=== PATIENT | male | born 1955 | race Caucasian/White ===

== ENCOUNTER → 2019-11-19 13:17 | Outpatient (BNVA) | payer BC, SELFPAY | PROVIDERS: Family Provider Family Medicine; PCP Family Medicine; Referring Provider Family Medicine; Visit Provider Podiatrist Foot & Ankle Surgery | DX: M79.671 Pain in right foot (principal); M79.672 Pain in left foot; M20.12 Hallux valgus (acquired), left foot; M20.11 Hallux valgus (acquired), right foot; M20.42 Other hammer toe(s) (acquired), left foot; M20.41 Other hammer toe(s) (acquired), right foot; M21.42 Flat foot [pes planus] (acquired), left foot; M21.41 Flat foot [pes planus] (acquired), right foot | CPT/HCPCS: 73630 ==

== ENCOUNTER 2019-12-28 10:01 | Inpatient (IN) | payer BC, SELFPAY ==
[2019-12-28] VITALS (30 sets, daily range): BP systolic 54–133; BP diastolic 28–89; PULSE 48–143; RESP 12–38; TEMP 36.6–36.9; O2SAT 91–99; BMI 31.9
--- NOTE | 2019-12-28 10:31 | ED_ITS ---
HPI - Abdominal Pain General: Chief Complaint: Abdominal Pain Stated Complaint: RIGHT SIDE PAIN Time Seen by Provider: 12/28/19 10:31 Source: patient Mode of arrival: ambulatory Limitations: no limitations History of Present Illness: HPI narrative: Patient comes in today with complaints of right lower quadrant pain. Patient appears well. Patient appears in mild to moderate pain. Patient has his gallbladder and appendix still. Patient reports a possible history of kidney stone with symptoms but did not get treatment at that time. Patient reports the pain started last evening, patient denied any vomiting or diarrhea with it or any fever. Review of Systems General: Reports: 10 or more systems reviewed and unremarkable except in HPI and below GI: Reports: abdominal pain (Right lower quadrant) PFS ED PFSH: Family History Other Cancer Chronic kidney disease (CKD) Denies family history of Diabetes CAD (coronary artery disease) Clotting disorder Dementia Hyperlipidemia Psychiatric illness Suicide Anesthesia complication Bleeding disorder Family history of premature coronary artery disease Lung disease Hypertension Stroke Social History (Updated 11/19/19 @ 13:50 by Marguerite Miller LPN) Smoking and tobacco status: never smoked Alcohol intake: never Lives independently: No Household members: spouse Marital status: Current occupational status: employed 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 Exam Const: COMMON NORMALS: no acute distress and patient oriented x3 GENERAL APPEARANCE: cooperative HENMT: COMMON NORMALS: normocephalic and Normal external nose present HEAD & SCALP: normal to inspection and normocephalic NOSE: Normal external nose present MOUTH: Normal oral and palatal mucosa present Eye: GENERAL EYE: appearance normal, both eyes and all related structures Neck/C-Spine: COMMON NORMALS: full ROM Lymph: LYMPHATIC: no lymphadenopathy noted Chest: COMMONS NORMALS: normal inspection of the chest Resp: COMMON NORMALS: normal respiratory effort EFFORT & INSPECTION: Yes able to speak in complete sentences Cardio: COMMON NORMALS: regular rate and regular rhythm RATE: regular rate RHYTHM: regular rhythm GI: COMMON NORMALS: Soft to palpation AUSCULTATION: Yes normoactive bowel sounds PALPATION: Yes Soft to palpation and Yes Tenderness to palpation present (GI) Details: RLQ (Light palpation) PERCUSSION: normal to percussion : COMMON NORMALS: Yes no CVA tenderness BLADDER/KIDNEY EXAM: Yes no CVA tenderness Back/Pelvis: COMMON NORMALS: no CVA tenderness and thoracic and lumbar spine normal to inspection Extremity: COMMON NORMALS: normal to inspection Neuro: COMMON NORMALS: patient oriented x3 and moves all extremities Psych: COMMON NORMALS: mental status grossly normal and cooperative Skin: COMMON NORMALS: no rashes or lesions noted GENERAL SKIN EXAM: no rashes or lesions noted Course ED course: 1107, Patient had a episode of intense pain radiating up into the mid epigastrium causing him to become diaphoretic. We will add a EKG and troponin series to plan and patient was medicated with morphine and Zofran for discomfort. wjw 1138, patient resting well reports is much improved with pain since medication. Reviewed labs with patient and recommendations for CT scan for further evaluation to rule out appendicitis. Patient reports understanding agreed to plan. wjw 1228, patient had a another vasovagal response with a decrease in his blood pressure and pulse rate. Patient was placed in Trendelenburg and nursing performed four chest compressions on patient in which patient spontaneously recovered without medication or treatment.. Dr. Lawrence and Dr. Jimenez both responded to evaluate the patient. Patient denied any chest pain. Repeat EKG was completed. wjw 1238, Dr. Menchaca had reviewed EKG and strips with Dr. Cuevas who believed that the episode was a vasovagal event. wjw 1244, talked with Dr. Ashkan MACK, he reports that patient has an acute appendicitis and also notes a left renal mass that seems suggestive for a neoplasm that will need further work-up. wjw 1300. Discussed with Dr. Billings regarding patient's acute appendicitis. Due to patient risk and concern for vasovagal syncope he requested patient be admitted and evaluated further for this syncopal episode prior to going to surgery. We will place patient on antibiotic and plan for admission with hospitalist staff and surgery for consult. wjw 1310, discussed with Dr. Dillon regarding patient and admission. She agreed to admission to the ICU for further evaluation regarding vasovagal syncope and treatment of acute appendicitis. Vital Signs: Vital signs: Vital Signs Temperature 98.4 F 12/28/19 10:32 Pulse Rate 81 12/28/19 13:00 Respiratory Rate 16 12/28/19 13:00 Blood Pressure 110/67 12/28/19 13:00 Pulse Oximetry 96 12/28/19 13:00 MDM - Abdominal Pain MDM Narrative: Medical decision making narrative: Patient came in today with right lower quadrant abdominal pain since yesterday evening. Patient had not eaten since yesterday evening. Patient appears mildly unwell. Patient does appear in moderate pain. Exam noted a significantly tender right lower quadrant of the abdomen. Vital signs were normal. Respirations were even lungs were clear to auscultation. Differential diagnosis includes renal calculi, acute appendicitis, gastroenteritis, diverticulitis, colitis. White blood cell count was elevated at 19,000, sodium was 134, creatinine is 1.3. CT scan of the abdomen and pelvis noted an acute appendicitis, incidentally there was a noted a suspicious mass to the left kidney that was concern for neoplasm. Patient did have an episode of vasovagal syncope in which he bradycardia to the point of systole for about 5 to 10 seconds. Nursing had performed for chest compressions in which patient had spontaneous recovery to a pulse in the 80s and a blood pressure with [address] Menchaca and Dr. Jimenez both had evaluated the patient along with consult to Dr. Fry who felt that the patient had a vasovagal arrhythmia/syncope. Discussed with Dr. cortez who agreed to consult with patient for the acute appendicitis but requested that hospitalist evaluate the patient further prior to surgery and to admit patient to hospitalist with possible further cardiac evaluation. Dr. Dillon was consulted and agreed to hospitalist admission of patient. Patient needs admission for surgical consult and treatment, monitoring for deterioration of condition, and further cardiac evaluation. Lab Data: Labs: Lab Results 12/28/19 12/28/19 12/28/19 Range/Units 10:38 10:38 10:38 WBC 19.8 H (4.0-10.0) 10^3/ uL RBC 4.97 (4.1-5.3) 10^6/u L Hgb 15.7 (11.7-16.6) g/dL Hct 47.0 (42.0-52.0) % MCV 94.6 H (80-94) fL MCH 31.6 (28.0-34.0) pg MCHC 33.4 (30.0-36.0) g/dL RDW 13.0 (12.1-15.1) % Plt Count 256 (130-400) 10^3/c mm MPV 9.8 (7.4-10.4) fL Neut % (Auto) 82.4 % Lymph % (Auto) 11.0 % [place] % (Auto) 5.1 % Eos % (Auto) 0.7 % Baso % (Auto) 0.5 % Neut # (Auto) 16.3 H (1.8-7.7) 10^3/u L Lymph # (Auto) 2.2 (0.8-4.8) 10^3/u L [place] # (Auto) 1.0 H (0.2-0.9) 10^3/u L Eos # (Auto) 0.1 (0.0-0.8) 10^3/u L Baso # (Auto) 0.1 (0.0-0.1) 10^3/u L Nucleated RBC % (a uto) 0 % Nucleated RBCs # 0.0 /100WBC Sodium 134 L (136-145) mmol/L Potassium 4.4 (3.5-5.1) mmol/L Chloride 99 (98-107) mmol/L Carbon Dioxide 21 L (22-29) mmol/L Anion Gap 18.4 (5-19) BUN 19 (8-23) mg/dL Creatinine 1.3 H (0.7-1.2) mg/dL GFR Calculation 55.9 L (90-130) mL/min Glucose 122 H (65-115) mg/dL Calculated Osmolal ity 276 L (285-295) mOsm/k g Calcium 9.8 (8.5-10.5) mg/dL Magnesium (1.7-2.3) mg/dL Total Bilirubin 0.7 (0.15-1.2) mg/dL AST 25 (0-40) U/L ALT 44 H (0-41) U/L Alkaline Phosphata se 109 (40-130) IU/L Troponin T Baselin e 8 (0-15) ng/L Troponin T 120 Min vishnu (0-15) ng/L Delta Troponin T (0-10) ABS# Total Protein 7.6 (6.6-8.7) g/dL Albumin 4.4 (3.5-5.2) g/dL Globulin 3.2 (1.3-4.6) g/dL Lipase 30 (13-60) U/L Urine Color (Yellow) Urine Appearance (CLEAR) Urine pH (5-7) Ur Specific Gravit y (1.005-1.030) Urine Protein (Negative) Urine Glucose (UA) (Normal) Urine Ketones (Negative) Urine Blood (Negative) Urine Nitrate (Negative) Urine Bilirubin (NEGATIVE) Urine Urobilinogen (Negative) mg/dL Ur Leukocyte Shi ase (Negative) 12/28/19 12/28/19 12/28/19 Range/Units 10:38 10:40 12:23 WBC (4.0-10.0) 10^3/ uL RBC (4.1-5.3) 10^6/u L Hgb (11.7-16.6) g/dL Hct (42.0-52.0) % MCV (80-94) fL MCH (28.0-34.0) pg MCHC (30.0-36.0) g/dL RDW (12.1-15.1) % Plt Count (130-400) 10^3/c mm MPV (7.4-10.4) fL Neut % (Auto) % Lymph % (Auto) % [place] % (Auto) % Eos % (Auto) % Baso % (Auto) % Neut # (Auto) (1.8-7.7) 10^3/u L Lymph # (Auto) (0.8-4.8) 10^3/u L [place] # (Auto) (0.2-0.9) 10^3/u L Eos # (Auto) (0.0-0.8) 10^3/u L Baso # (Auto) (0.0-0.1) 10^3/u L Nucleated RBC % (a uto) % Nucleated RBCs # /100WBC Sodium (136-145) mmol/L Potassium (3.5-5.1) mmol/L Chloride (98-107) mmol/L Carbon Dioxide (22-29) mmol/L Anion Gap (5-19) BUN (8-23) mg/dL Creatinine (0.7-1.2) mg/dL GFR Calculation (90-130) mL/min Glucose (65-115) mg/dL Calculated Osmolal ity (285-295) mOsm/k g Calcium (8.5-10.5) mg/dL Magnesium 2.0 (1.7-2.3) mg/dL Total Bilirubin (0.15-1.2) mg/dL AST (0-40) U/L ALT (0-41) U/L Alkaline Phosphata se (40-130) IU/L Troponin T Baselin e (0-15) ng/L Troponin T 120 Min vishnu 7.36 (0-15) ng/L Delta Troponin T -0.64 L (0-10) ABS# Total Protein (6.6-8.7) g/dL Albumin (3.5-5.2) g/dL Globulin (1.3-4.6) g/dL Lipase (13-60) U/L Urine Color Yellow (Yellow) Urine Appearance Clear (CLEAR) Urine pH 5 (5-7) Ur Specific Gravit y 1.015 (1.005-1.030) Urine Protein Neg (Negative) Urine Glucose (UA) Norm (Normal) Urine Ketones Negative (Negative) Urine Blood Neg (Negative) Urine Nitrate Negative (Negative) Urine Bilirubin Neg (NEGATIVE) Urine Urobilinogen Norm (Negative) mg/dL Ur Leukocyte Shi ase Negative (Negative) EKG Data ^: EKG 1: Attestation: I personally reviewed and interpreted this EKG as follows: (1118, sinus rhythm at 66 bpm and regular, no ST elevation, occasional PVC is noted.) EKG 2: Attestation: I personally reviewed and interpreted this EKG as follows: (1233, Sinus rhythm, occasion PVC's, no ST elevation, no change from previous EKG.) Critical Care Time Critical Care Time: Critical Care Time: Yes Total Critical Care Time: 30 Attestation: 1228, patient had a sudden drop in pulse and blood pressure an apparent vasovagal syncope. Nursing had performed for compressions on the patient when he had an sudden return to a sinus rhythm and a return of blood pressure from 50 systolic to 130 systolic. Patient had repeat EKG which showed no significant change from prior evaluation. And troponin had no change from prior evaluation. Dr. Menchaca and Dr. Jimenez both had evaluated patient during the episode and had consulted with Dr. Cuevas for her cardiology opinion. Discharge Plan Discharge Patient Disposition: Admitted As Inpatient Clinical Impression: Vasovagal syncope Acute appendicitis Qualifiers: Acute appendicitis type: unspecified acute appendicitis type Qualified Code(s): K35.80 - Unspecified acute appendicitis Condition: Stable Referrals: Ayo Miles DO [Primary Care Provider] - Patient Instructions: Appendicitis (GEN) Coding Level of Care Code ED Bacteriologist Food for Chg Fwd Exam Comprehensive
--- NOTE | 2019-12-28 10:38 | CTR_ITS ---
PROCEDURE INFORMATION: Exam: CT Abdomen And Pelvis With Contrast Exam date and time: 12/28/2019 10:41 AM Age: 64 years old Clinical indication: Abdominal pain; Localized; Other: Rlq and epigastric pain; Additional info: Rlq pain tenderness TECHNIQUE: Imaging protocol: Computed tomography of the abdomen and pelvis with intravenous contrast. Radiation optimization: All CT scans at this facility use at least one of these dose optimization techniques: automated exposure control; mA and/or kV adjustment per patient size (includes targeted exams where dose is matched to clinical indication); or iterative reconstruction. Contrast material: VISI 320; Contrast volume: 95 ml; Contrast route: INTRAVENOUS (IV); COMPARISON: No relevant prior studies available. RADIATION DOSE METRICS: Total DLP (mGy-cm): 1549.78 FINDINGS: Liver: No mass. Gallbladder and bile ducts: Unremarkable. No ductal dilation. Pancreas: Normal. No ductal dilation. Spleen: Normal. No splenomegaly. Adrenals: Normal. No mass. Kidneys and ureters: Heterogeneous 3.5 cm exophytic left mid renal mass. No renal calculus or hydronephrosis. Stomach and bowel: Minimal small bowel dilatation. No obstruction. Possible minimal bowel wall thickening in the distal ileum. Appendix: The appendix is distended, estimated at 2 cm. Appendiceal wall thickening, periappendiceal edema/inflammation. Appendicoliths. Intraperitoneal space: No free fluid or pneumoperitoneum. No abscess. Vasculature: No abdominal aortic aneurysm. Lymph nodes: No significant adenopathy. Bladder: Unremarkable as visualized. Reproductive: Unremarkable as visualized. Bones/joints: No acute findings. Soft tissues: Small fat containing umbilical and supraumbilical ventral hernias. CT/CT abdomen pelvis w con* [id number] IMPRESSION: Acute appendicitis. 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 THIS REPORT CONTAINS FINDINGS THAT MAY BE CRITICAL TO PATIENT CARE. The findings were verbally communicated via telephone conference with Dillon Armendariz at 12:46 PM CDT on 12/28/2019. The findings were acknowledged and understood. Radiation Dose CTDIVOL = (mGy): DLP = 1549.78 (mGy-cm)
[2019-12-28 11:05] LABS: Basophils # 0.1 10^3/uL (0.0-0.1); Basophils % 0.5 %; Eosinophils # 0.1 10^3/uL (0.0-0.8); Eosinophils % 0.7 %; Hemoglobin 15.7 g/dL (11.7-16.6); Lymphocytes # 2.2 10^3/uL (0.8-4.8); Mean Corpuscular HGB Conc 33.4 g/dL (30.0-36.0); Mean Corpuscular Hemoglobin 31.6 pg (28.0-34.0); Mean Corpuscular Volume 94.6 fL (80-94); Mean Platelet Volume 9.8 fL (7.4-10.4); Monocytes % 5.1 %; Neutrophils # 16.3 10^3/uL (1.8-7.7); Neutrophils % 82.4 %; Nucleated Red Blood Cells % 0 %; Platelet Count 256 10^3/cmm (130-400); Red Blood Count 4.97 10^6/uL (4.1-5.3); White Blood Count 19.8 10^3/uL (4.0-10.0)
--- NOTE | 2019-12-28 11:08 | ECG_ITS ---
[facility] ED Test Date: 2019-12-28 Pat Name: Sandro Shine Department: Room: Gender: Male Director Of Materials Management: : 1955 Requested By: Dillon Nielsen Order Number: [id number] Ant MD: Flaca Cuevas M.D. Measurements Intervals [place] Rate: 66 P: 13 MT: 149 QRS: 0 QRSD: 104 T: 1 QT: 392 QTc: 412 Interpretive Statements SINUS RHYTHM WITH OCCASIONAL VENTRICULAR PREMATURE COMPLEXES POSSIBLE RIGHT VENTRICULAR CONDUCTION DELAY [RSR (QR) IN V1/V2] No previous ECG available for comparison Electronically Signed On 12-28-2019 13:33:16 CDT by Flaca Cuevas M.D. [id number]
[2019-12-28 11:12] LABS: Add Urine Microscopic? NO
[2019-12-28] MEDS: ondansetron 2 mg/ML SDV 2 mL 8 MG IVP (11:14)
[2019-12-28] MEDS: sodium chloride 0.9% 500 ML 999 ML IV ×2 (11:14→12:32)
[2019-12-28] MEDS: morphine 4 mg/mL SDV 1 mL IVP ×3 (11:14→23:33)
[2019-12-28 11:17] LABS: Bilirubin Urine Neg (NEGATIVE); Blood Urine Neg (Negative); Glucose Urine UA Norm (Normal); Ketones Urine Negative (Negative); Leukocyte Esterase Urine Negative (Negative); Nitrate Urine Negative (Negative); Protein Urine Neg (Negative); Specific Gravity, Urine 1.015 (1.005-1.030); Urine Appearance Clear (CLEAR); Urine Color Yellow (Yellow); Urobilinogen Urine Norm (Negative); pH Urine 5 (5-7)
--- NOTE | 2019-12-28 11:28 | PC.NURSE ---
Vasovagal like reaction observed. Patient has recovered.
[2019-12-28 11:34] LABS: Alanine Aminotransferase 44 U/L (0-41); Albumin Level 4.4 g/dL (3.5-5.2); Alkaline Phosphatase 109 IU/L (40-130); Anion Gap 18.4 (5-19); Blood Urea Nitrogen 19 mg/dL (8-23); Calcium 9.8 mg/dL (8.5-10.5); Carbon Dioxide 21 mmol/L (22-29); Chloride 99 mmol/L (98-107); Globulin 3.2 g/dL (1.3-4.6); Glomerular Filtration Rate 55.9 mL/min (90-130); Glucose 122 mg/dL (65-115); Lipase 30 U/L (13-60); Osmolality Calculated 276 mOsm/kg (285-295); Potassium 4.4 mmol/L (3.5-5.1); Sodium 134 mmol/L (136-145); Total Bilirubin 0.7 mg/dL (0.15-1.2); Total Protein 7.6 g/dL (6.6-8.7)
[2019-12-28 11:35] LABS: Aspartate Amino Transferase 25 U/L (0-40)
[2019-12-28 11:53] LABS: Troponin(5th) Baseline 8 ng/L (0-15)
[2019-12-28] MEDS: iodixanol 320 mg/mL 100mL Btl 95 ML IV (12:05)
[2019-12-28 12:45] LABS: Troponin 5 2HR 7.36 ng/L (0-15); Troponin 5 2HR Delta -0.64 ABS# (0-10)
--- NOTE | 2019-12-28 12:49 | PC.NURSE ---
Read and agree with assessment
--- NOTE | 2019-12-28 12:53 | PC.NURSE ---
Called to the patient's room at 1231 by family. The patient complained of sudden worsening of lower abdominal pain. I reported the sudden episode of pain to the LEVELING MACHINE OPERATOR then returned back to the room. The patient was awake at this time with sinus savanna (45 bpm) on the monitor. The R to R interval widened until asystole was observed. Compressions withheld for 8 seconds while waiting for NANCY. Chest compressions started at 12:32:32. I advised the patient's to get additional help. Compressions performed for 10 seconds when narrow complexes were observed again. Femoral pulses palpated confirming NANCY. EKG repeated. The patient regained consciousness shortly after, questioning what had happened. Combo pads connected to the patient. ACLS drugs placed at bedside.
--- NOTE | 2019-12-28 12:56 | PC.NURSE ---
Pt noted to be 88-90% oxygen saturation on room air. Pt placed on 2LNC, now 97-99%. Pt awake and report he is feeling ok.
--- NOTE | 2019-12-28 13:08 | ECG_ITS ---
[facility] Test Date: 2019-12-28 Pat Name: Sandro Shine Department: Room: Gender: Male It Support Consultant: : 1955 Requested By: Dillon Nielsen Order Number: [id number] Cain MD: Flaca Cuevas M.D. Measurements Intervals [place] Rate: 75 P: 15 SC: 152 QRS: 4 QRSD: 106 T: 11 QT: 394 QTc: 440 Interpretive Statements SINUS RHYTHM POSSIBLE RIGHT VENTRICULAR CONDUCTION DELAY [RSR (QR) IN V1/V2] Compared to ECG 12/28/2019 11:19:45 Ventricular premature complex(es) no longer present Electronically Signed On 12-28-2019 13:43:25 CDT by Flaca Cuevas M.D. [id number]
--- NOTE | 2019-12-28 13:21 | XRR_ITS ---
PROCEDURE INFORMATION: Exam: XR Chest, 1 View Exam date and time: 12/28/2019 1:22 PM Age: 64 years old Clinical indication: Dyspnea; Additional info: Surgery TECHNIQUE: Imaging protocol: XR of the chest Views: 1 view. COMPARISON: No relevant prior studies available. FINDINGS: Lungs: Unremarkable. No consolidation. Pleural space: Unremarkable. No pleural effusion. No pneumothorax. Heart/Mediastinum: Unremarkable. No cardiomegaly. Bones/joints: No acute findings. XR/XR chest 1V portable [id number] IMPRESSION: No acute findings.
--- NOTE | 2019-12-28 13:45 | PM.CONSULT ---
Providers/Reason For Consult Consulting Physican/Specialty*: Rogelio Billings MD Reason for Consult*: Acute appendicitis Requesting Physcian: Physician video library assistant Bill Armendariz Attending Physician: Mariama Llanos MD Primary Care Provider: Ayo Miles DO History of Present Illness History of Present Illness Chief Complaint: My right side hurts History of present illness: Mr. Sandro Shine is a pleasant 64 year old male with history of chronic kidney disease and hypertension, presents to the emergency department with worsening abdominal pain on the right side associated with nausea but no vomiting and constipation but no diarrhea patient denies any shortness of breath or dysuria, pain started at the epigastric region yesterday evening and started to go towards the right lower quadrant, dull aching in nature and nothing seems to make it better yet moving makes it worse and palpation of the belly. Patient also denies any fevers or chills Patient presented to the emergency department for further evaluation and apparently he did have a bradycardia in the 30s followed by asystole for 8 seconds and required CPR as he did not have a pulse at that point CPR ranged around 15 seconds and the patient was revived which could be due to vasovagal episode, patient reports that this happened before when I asked him about previous colonoscopy as he did report that it happened during the colonoscopy about 12 years ago. General surgery was consulted for further evaluation and potential intervention, patient was seen and evaluated in the emergency department in room (12). Blood work should leukocytosis of 19,000 plus and a baseline creatinine of 1.3 CT scan was obtained that showed: FINDINGS: Liver: No mass. Gallbladder and bile ducts: Unremarkable. No ductal dilation. Pancreas: Normal. No ductal dilation. Spleen: Normal. No splenomegaly. Adrenals: Normal. No mass. Kidneys and ureters: Heterogeneous 3.5 cm exophytic left mid renal mass. No renal calculus or hydronephrosis. Stomach and bowel: Minimal small bowel dilatation. No obstruction. Possible minimal bowel wall thickening in the distal ileum. Appendix: The appendix is distended, estimated at 2 cm. Appendiceal wall thickening, periappendiceal edema/inflammation. Appendicoliths. Intraperitoneal space: No free fluid or pneumoperitoneum. No abscess. Vasculature: No abdominal aortic aneurysm. Lymph nodes: No significant adenopathy. Bladder: Unremarkable as visualized. Reproductive: Unremarkable as visualized. Bones/joints: No acute findings. Soft tissues: Small fat containing umbilical and supraumbilical ventral hernias. CT/CT abdomen pelvis w con* [id number] IMPRESSION: Acute appendicitis. 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 Echocardiogram was done back in 2017 that showed: CONCLUSIONS Normal left ventricular size, systolic function and wall thickness, with no regional wall motion abnormalities. Normal left ventricular wall thickness. Normal diastolic filling pattern. Left ventricular ejection fraction is estimated at 55- 60 %. Normal right ventricular size and systolic function. Mild pulmonary hypertension, RVSP 35 mmHg. Mildly increased right atrial size. Mildly increased left atrial size. Structurally normal mitral valve. Trace mitral valve regurgitation. There are no prior echocardiogram studies to compare. Review of Systems General: Reports: 10 or more systems reviewed and unremarkable except in HPI and below Meds/Allergies Home Medications and Allergies Home Medications Medication Instructions Recorded Confirmed Last Taken Type lisinopril 20 1 tab PO DAILY 11/19/19 12/28/19 12/28/19 History mg-hydrochlorothiazide 25 mg tablet temazepam 15 mg capsule 15 mg PO DAILY 11/19/19 12/28/19 12/27/19 History allopurinol 300 mg PO DAILY 12/28/19 12/28/19 12/28/19 History naproxen sodium [Aleve] 220 mg PO BID PRN 12/28/19 12/28/19 12/27/19 History Allergies Allergy/AdvReac Type Severity Reaction Status Date / Time No Known Allergies Allergy Verified 12/28/19 14:06 PFSH Acute PFSH: Medical History Hypertension Vasovagal syncope Surgical History H/O knee surgery Family History Other Cancer Chronic kidney disease (CKD) Denies family history of Diabetes CAD (coronary artery disease) Clotting disorder Dementia Hyperlipidemia Psychiatric illness Suicide Anesthesia complication Bleeding disorder Family history of premature coronary artery disease Lung disease Hypertension Stroke Social History Smoking and tobacco status: never smoked Alcohol intake: never Lives independently: No Household members: spouse Marital status: Current occupational status: employed 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 Vital Signs Temp 98.4 F 12/28/19 10:32 Pulse 88 12/28/19 13:40 Resp 18 12/28/19 13:40 BP 115/72 12/28/19 13:40 Pulse Ox 97 12/28/19 13:40 Weight last 48 hrs Weight 210 lb Physical Exam Narrative: EXAM NARRATIVE: Patient is conscious alert oriented X3 BMI 32 Head and neck examination PERRLA no masses no cervical lymphadenopathy no jaundice Cardiac examination audible S1-S2 no murmurs no gallops no arrhythmias Chest is clear bilateral,abscence of Rhonchi or wheezes,no surgical emphysema Abdomen tender at the right lower quadrant with localized tenderness and guarding and siding with McBurney's point otherwise nondistended soft no organomegaly guarding or rigidity/no signs of peritonitis Extremities no cyanosis no clubbing no edema A&P Assessment and plan (1) Acute appendicitis: After thorough history taking,physical examination and reviewing the chart and images with my personal interpretation of the CT scan images and further evaluating the patient,obviously laparoscopic appendectomy possible open would be the way to go,giving the fact that the patient undergone asystole and required CPR that will change the plan and likely will place the patient on broad-spectrum parenteral antimicrobial therapy understanding if that continues to be an issue patient may develop an abscess formation, perforation and may require CT-guided drainage.Unless patient is medically cleared for surgery per medical and cardiac services. Pharmacologic DVT prophylaxis Thank you for consulting general surgery to participate taking care Status: Acute Qualifiers: Acute appendicitis type: unspecified acute appendicitis type Qualified Code(s): K35.80 - Unspecified acute appendicitis (2) Vasovagal syncope: Will defer to the hospitalist service and cardiology for further evaluation and potential medical/Cardiac clearance for surgical intervention if any,otherwise having the patient in this status would be at higher risk for surgical intervention as he can go into [place] perioperatively. I did discuss in length and in depth with the patient and his spouse about being at a higher risk for potential surgical intervention at this point. 15:28 Further discussing the case with Dr. Llanos she believes that the patient had vasovagal episode and she did talk with Dr. Way the soft sugar operator head to evaluate the patient and Dr. Way believes that is the condition as well. Full medical notes available per chart, bedside ECHO per Dr. Way's recommendation preoperatively no structural abnormalities detected. We will plan to perform laparoscopic appendectomy possible open and patient agreed to proceed accordingly understanding the potential risks, benefits, alternatives and indications,. Status: Acute (3) Left renal mass: Incidental finding of left renal mass concerning for neoplasm, patient will benefit from urology evaluation down the road and potential partial nephrectomy when indicated. I did get the chance to review the images and I had patient's spouse to see the CT scan images as well to understand more the current pathology involving the appendix and the left kidney. Status: Acute Consult Attestations Medical Necessity Statement: Per hospitalist service Time Spent in Patient Care: (>than 50% of time spent in counselling and/or direct pt care on unit). 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
[2019-12-28] MEDS: piperacillin-tazobactam 3.375 GM in sodium chloride 0.9% (plus) 50 ML IV ×2 (14:21→20:42)
[2019-12-28] MEDS: sodium chloride 0.9% 1,000 ML 150 ML IV ×2 (14:42→20:43)
--- NOTE | 2019-12-28 15:39 | USCV_ITS ---
Sandro Shine Age: 64 Gender: M : 1955 Exam Date: 12/28/2019 15:58 Ordering Phys: Mariama Llanos MD Technologist: Maria Isabel Campbell Exam Location: [facility] [place] Indication: Syncopal episode, pre0op planning BP: 111 / 76 HR: 76 Rhythm: Sinus Technical Quality: Fair MEASUREMENTS (Male / Female) Normal Values 2D ECHO LV Diastolic Diameter PLAX 4.0 cm 4.2 - 5.9 / 3.9 - 5.3 cm LV Systolic Diameter PLAX 2.8 cm LV Chamber Size 4.2 cm IVS Diastolic Thickness 1.1 cm 0.6 - 1.0 / 0.6 - 0.9 cm IVS Systolic Thickness 1.7 cm LVPW Diastolic Thickness 1.0 cm 0.6 - 1.0 / 0.6 - 0.9 cm LVPW Systolic Thickness 1.6 cm RV Chamber Size 3.1 cm LVOT Diameter 2.0 cm LV Ejection Fraction 2D Teich 59.8 % LA Diameter 4.8 cm LA Width 3.5 cm LA Height 6.0 cm RA Width 2.3 cm RA Height 5.6 cm Aorta at Sinotubular Diameter 2.3 cm M-MODE LV Diastolic Diameter MM 6.2 cm 4.2 - 5.9 / 3.9 - 5.3 cm LV Systolic Diameter MM 3.9 cm LV Ejection Fraction MM Teich 66.5 % IVS Diastolic Thickness MM 0.9 cm 0.6 - 1.0 / 0.6 - 0.9 cm IVS Systolic Thickness MM 1.6 cm LVPW Diastolic Thickness MM 1.0 cm 0.6 - 1.0 / 0.6 - 0.9 cm LVPW Systolic Thickness MM 1.6 cm RV Diastolic Diameter MM 1.5 cm Aortic Annulus Diameter 3.3 cm LA Ao Ratio MM 1.5 MV E Point Septal Separation 0.8 cm DOPPLER AV Peak Velocity 124.0 cm/s LVOT Peak Velocity 80.0 cm/s AV Area Cont Eq vti 2.3 cm squared AV Area Cont Eq pk 2.0 cm squared MV Area PHT 4.2 cm squared Mitral E to A Ratio 0.9 MV E' Velocity 13.0 cm/s Mitral E to MV E' Ratio 6.7 Mitral E to LV E' Lateral Ratio 5.7 Mitral E to LV E' Septal Ratio 8.3 TR Peak Velocity 288.0 cm/s TR Peak Gradient 33.1 mmHg TR Mean Velocity 221.9 cm/s TR Mean Gradient 20.5 mmHg TR Velocity Time Integral 87.8 cm TV Peak E Velocity 95.0 cm/s Right Atrial Pressure 3.0 mmHg Pulmonary Artery Systolic Pressu 36.2 mmHg PV Peak Velocity 74.0 cm/s RV Acceleration Time 0.1 s RV Ejection Time 0.3 s RV AcT/ET 0.4 FINDINGS Left Ventricle Normal left ventricular size, systolic function and wall thickness, with no regional wall motion abnormalities. Left ventricular ejection fraction is estimated at 60%. Normal diastolic function. Right Ventricle Normal right ventricular size and systolic function. Right ventricular systolic pressure 36.2 mmHg. Right Atrium Right atrium not well visualized. Right atrial pressure estimated at 3 mmHg. Left Atrium Normal left atrial size. Mitral Valve Structurally normal mitral valve. No mitral valve stenosis. No mitral valve regurgitation. Aortic Valve Structurally normal trileaflet aortic valve. No aortic valve stenosis. No aortic valve regurgitation. Tricuspid Valve Structurally normal tricuspid valve. Trace tricuspid valve regurgitation. Pulmonic Valve Pulmonic valve not well visualized. No pulmonary valve regurgitation. Pericardium No pericardial effusion. Aorta Normal-sized aortic root CONCLUSIONS 1. Normal left ventricular size, systolic function and wall thickness, with no regional wall motion abnormalities. Left ventricular ejection fraction is estimated at 60%. Normal diastolic function. 2. Normal right ventricular size and systolic function. 3. No significant valvular abnormality. 4. Pulmonary artery pressure estimated at 36 mmHg. 5. When compared to previous study dated 06/24/2017, there has been no significant change. Flaca Cuevas MD (Electronically Signed) Final Date: 28 December 2019 16:50 S
--- NOTE | 2019-12-28 15:46 | P.CONIM_ITS ---
Providers/Reason For Consult Consulting Physican/Specialty*: Dr. Cuevas, Cardiology Reason for Consult*: Pre op clearance, Syncope Attending Physician: Mariama Llanos MD Primary Care Provider: Ayo Miles DO History of Present Illness History of Present Illness Sandro Shine is a 64 year old male with past medical history of hypertension and history of palpitations who presented with acute onset abdominal pain. Patient's abdominal pain started yesterday evening and right lower abdomen associated with nausea. Pain was described as dull 10 on 10 in intensity and more or less constant. On present patient to the ER, patient one episode of syncope. There was one episode where he bradycardia down to 30s along with abdominal pain and became diaphoretic and hypotensive. This resolved after receiving some morphine. During the second episode he became bradycardic down in 20s followed by asystole. Patient received brief chest compressions by the nursing staff followed by return of junctional rhythm in 30s followed by sinus bradycardia. He does not seem like patient lost pulse at any point during this above-mentioned episode. Patient gives history of a similar episode during colonoscopy about 10 to 12 years back. Patient otherwise denies any cardiac history and is followed up by Dr. Foy. He has had a stress test several years back that was normal and his last echocardiogram in 2017 did not show any abnormality. 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 He walks several miles a day without any exertional dyspnea or chest discomfort. EKG showed sinus rhythm with normal axis with occasional PVCs and right ventricular conduction delay. Nonspecific T wave inversion in lead III. 2 sets of troponin were within normal limits. CT scan of his abdomen showed acute appendicitis (distended appendix measured at 2 cm with wall thickening and periappendiceal edema and inflammation). I have been asked to evaluate the patient for preoperative clearance. Review of Systems General: Reports: 10 or more systems reviewed and unremarkable except in HPI and below Const: Denies: fever(s) or chills ENMT: Denies: epistaxis Card: Reports: irregular heart rhythm; Denies: chest pain, palpitations, edema, dyspnea on exertion or orthopnea Resp: Denies: dyspnea or productive cough GI: Reports: abdominal pain and nausea; Denies: vomiting, pain on defecation or hematochezia Musc: Denies: extremity swelling Skin/Breast: Denies: rash Psych: Denies: anxiety or depression Jaya/Lymph: Denies: petechiae or purpura Meds/Allergies Home Medications and Allergies Home Medications Medication Instructions Recorded Confirmed Last Taken Type lisinopril 20 1 tab PO DAILY 11/19/19 12/28/19 12/28/19 History mg-hydrochlorothiazide 25 mg tablet temazepam 15 mg capsule 15 mg PO DAILY 11/19/19 12/28/19 12/27/19 History allopurinol 300 mg PO DAILY 12/28/19 12/28/19 12/28/19 History naproxen sodium [Aleve] 220 mg PO BID PRN 12/28/19 12/28/19 12/27/19 History Allergies Allergy/AdvReac Type Severity Reaction Status Date / Time No Known Allergies Allergy Verified 12/28/19 14:06 Current Medications Current Medications Generic Name Dose Route Start Last Admin Trade Name Freq PRN Reason Stop Dose Admin Sodium Chloride 1,000 mls @ 150 mls/hr 12/28/19 13:30 12/28/19 14:42 Sodium Chloride 0.9% IV 150 mls/hr .[id number] ANGELIQUE Administration PFSH Acute PFSH: Medical History Hypertension Vasovagal syncope Surgical History H/O knee surgery Family History Other Cancer Chronic kidney disease (CKD) Denies family history of Diabetes CAD (coronary artery disease) Clotting disorder Dementia Hyperlipidemia Psychiatric illness Suicide Anesthesia complication Bleeding disorder Family history of premature coronary artery disease Lung disease Hypertension Stroke Social History Smoking and tobacco status: never smoked Alcohol intake: never Lives independently: No Household members: spouse Marital status: Current occupational status: employed 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 Vital 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 Temp 98.4 F 12/28/19 10:32 Pulse 76 12/28/19 15:00 Resp 17 12/28/19 15:00 BP 111/76 12/28/19 15:00 Pulse Ox 96 12/28/19 15:00 12/28/19 12/28/19 12/28/19 06:59 14:59 22:59 Output Total 325 / 325 Balance -325 / -325 Weight last 48 hrs Weight 210 lb Physical Exam Const: COMMON NORMALS: no acute distress, average body habitus, patient oriented x3, alert and well nourished GENERAL APPEARANCE: cooperative, comfortable, well kempt and well developed ORIENTATION/CONSCIOUSNESS: Yes oriented to person, Yes oriented to place and Yes oriented to time HENMT: COMMON NORMALS: normocephalic, atraumatic, hearing grossly normal bilaterally, external ears normal and Normal external nose present HEAD & SCALP: normocephalic and atraumatic FACE & SINUS: face symmetric NOSE: Normal external nose present EXTERNAL EAR: Yes external ears normal MOUTH: Normal oral and palatal mucosa present Eye: COMMON NORMALS: Equal, round and reactive pupils present, EOMs intact bilaterally and conjunctivae normal ALIGNMENT: Yes alignment normal CONJUNCTIVA: Yes conjunctivae normal SCLERA: sclerae normal PUPIL: Yes Equal, round and reactive pupils present Neck/C-Spine: COMMON NORMALS: supple and no JVD; negative for No carotid bruits Chest: COMMONS NORMALS: normal inspection of the chest Resp: COMMON NORMALS: normal respiratory effort, No use of accessory muscles and clear to auscultation bilaterally AUSCULTATION: clear to auscultation bilaterally, no crackles, no rales, no rhonchi and no wheezes Cardio: COMMON NORMALS: no JVD, regular rate, regular rhythm, S1 normal heart sound present, S2 normal heart sound present and Peripheral pulses 2+ throughout; negative for No gallops present (Cardio) JUGULAR VENOUS DISTENTION: no JVD PALPATION: normal PMI, no heave and no palpable S3 RATE: regular rate RHYTHM: regular rhythm HEART SOUNDS: S1 normal heart sound present, S2 normal heart sound present, no click, no gallops and no murmurs PERIPHERAL PULSES: Peripheral pulses 2+ throughout Neuro: COMMON NORMALS: patient oriented x3 and no focal motor deficits SENSORIUM/ORIENTATION: Yes alert, Yes oriented to person, Yes oriented to place and Yes oriented to time CRANIAL NERVES: Yes CN normal except as noted Psych: COMMON NORMALS: Normal thought process present APPEARANCE: Yes well kempt MOOD & AFFECT: Yes euthymic mood THOUGHT PROCESS: Normal thought process present THOUGHT CONTENT: Yes Normal thought content present ATTENTION/CONCENTRATION: Yes attention grossly intact MEMORY/COGNITION: Yes memory grossly intact A&P Assessment and plan (1) Acute appendicitis: Status: Acute Qualifiers: Acute appendicitis type: unspecified acute appendicitis type Qualified Code(s): K35.80 - Unspecified acute appendicitis (2) Vasovagal syncope: Reviewing the EKG and telemetry strips it seems to be a vasovagal syncope in setting of pain. -Normal LV function without any significant valvular abnormality on echocardiogram. Status: Acute (3) Encounter for pre-operative cardiovascular clearance: Patient's functional status is more than 4 METs. He would need to be closely monitored perioperatively for syncope. -Perioperative pain and nausea need to be controlled well. -Standby transcutaneous pacing if needed Status: Acute (4) Hypertension: Status: Acute Qualifiers: Hypertension type: essential hypertension Qualified Code(s): I10 - Essential (primary) hypertension (5) Left renal mass: Status: Acute Additional A&P Information History of PVCs : Asymptomatic mostly thank you for allowing me to participate in patient's care. Please feel free to call with questions or concerns if any. 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
--- NOTE | 2019-12-28 15:49 | PM.HP ---
Providers/Chief Complaint Admitting Physician: Mariama Llanos MD Primary Care Provider: Ayo Miles DO Chief Complaint: RIGHT SIDE PAIN History of Present Illness Sandro Shine is a 64 year old male with a past medical history of hypertension who presented to the emergency department today complaining of abdominal pain in the right lower quadrant associated with nausea and constipation. He denies any complains of diarrhea. He stated that the pain started yesterday, was mostly in the upper abdomen and then migrated down towards the right lower quadrant. Describes it as dull aching in nature, 10 on 10 in intensity, constant. It is made worse on turning sides. On his CAT scan he was noted to have an acute appendicitis. Upon being evaluated in the ED patient developed 2 episodes of what appears to be vasovagal syncope per history. During one episode of intense pain, he was noted to have bradycardia down to 30s. It was transient, relieved soon after giving morphine. He was hypotensive with systolic blood pressure of 54 at the time. Then a second episode happened a few minutes later wherein he initially had bradycardia for a few seconds which eventually led to asystole for 5 to 10 seconds. Reportedly he received some chest compressions at the time. It is not known if he was truly pulseless at the time of asystole. However with minimal CPR he was noted to have spontaneous circulation with heart rate back in the 80s and blood pressure up to 130 systolic. Patient states that with both of these episodes he was able to tell when he is going to have them. He becomes very diaphoretic and pale right before and starts to feel very queasy. At a baseline patient heart rate is between 50s to 60s 60s. 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 He feels completely asymptomatic at other times. He has no known cardiac history. He does report similar episode of presyncopal episode while undergoing a colonoscopy 12 years ago. He feels he is extremely sensitive to any GI manipulation and at the time of colonoscopy was only under sedation. He did fine with his knee surgery under general anesthesia a couple of years before the colonoscopy. About 7 to 8 years ago, he states that he underwent a cardiac evaluation for reported palpitations. He has not had any Holter monitoring. In our system I am able to see an echocardiogram from June 2017 which was with LVEF of 55 to 60%. Normal left ventricular size, systolic function and wall thickness without any regional wall motion abnormalities. There was normal diastolic filling pattern. There is a stress test from 2010 which was normal. At a baseline he states he is a very physically active person. 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 Is able to walk 2 to 3 miles at a time without any exertional shortness of breath, chest pain. Denies any lower extremity swelling. Denies any other cardiac history. No family history of sudden cardiac . There were no acute ST-T changes noted on his EKG currently. Telemetry shows sinus rhythm with few VPCs. Systolic blood pressure is ranging between 10 1-1 42. Baseline troponin is not elevated. 2-hour delta is at -0.64. Review of Systems General: Reports: 10 or more systems reviewed and unremarkable except in HPI and below Const: Denies: fever(s), chills or body aches Eyes: Denies: change in vision, blurry vision or photophobia ENMT: Denies: throat pain, enlarged tonsils, odynophagia, hoarseness or nasal congestion Card: Denies: chest pain, palpitations, irregular heart rhythm, edema, swelling of feet/ankles, lightheadedness, pre-syncope, dyspnea on exertion or orthopnea Resp: Denies: dyspnea, productive cough, non-productive cough, wheezing, stridor, pain on inspiration, change in phlegm color, hemoptysis or chest congestion GI: Denies: abdominal pain, nausea, vomiting, hematemesis, coffee ground emesis, dysphagia, heartburn, diarrhea, constipation, GI cramping, change in stool character, hematochezia or melena : Denies: flank pain, dysuria, urinary frequency, urinary urgency, urinary hesitancy or hematuria Musc: Denies: neck pain, back pain, extremity pain, joint swelling, joint warmth or deformity Neuro: Denies: headache(s), numbness in extremities, weakness in extremities, sensory changes, difficulty walking, frequent falls, dizziness, vertigo, behavioral changes, Slurred speech present or seizure-like activity Psych: Denies: anxiety, depression, suicidal ideation or homicidal ideation Endo: Denies: polyuria, polydipsia, tired all the time, cold intolerance or hot flashes Ajya/Lymph: Denies: easy bruising or easy bleeding Medications/Allergies Home Medications Medication Instructions Recorded Confirmed Last Taken Type lisinopril 20 1 tab PO DAILY 11/19/19 12/28/19 12/28/19 History mg-hydrochlorothiazide 25 mg tablet temazepam 15 mg capsule 15 mg PO DAILY 11/19/19 12/28/19 12/27/19 History allopurinol 300 mg PO DAILY 12/28/19 12/28/19 12/28/19 History naproxen sodium [Aleve] 220 mg PO BID PRN 12/28/19 12/28/19 12/27/19 History Allergies Allergy/AdvReac Type Severity Reaction Status Date / Time No Known Allergies Allergy Verified 12/28/19 14:06 PFSH Acute PFSH: Medical History (Updated 12/28/19 @ 16:15 by Mariama Llanos MD) Hypertension Vasovagal syncope Surgical History (Updated 12/28/19 @ 16:07 by Mariama Llanos MD) H/O knee surgery Family History Other Cancer Chronic kidney disease (CKD) Denies family history of Diabetes CAD (coronary artery disease) Clotting disorder Dementia Hyperlipidemia Psychiatric illness Suicide Anesthesia complication Bleeding disorder Family history of premature coronary artery disease Lung disease Hypertension Stroke Social History Smoking and tobacco status: never smoked Alcohol intake: never Lives independently: No Household members: spouse Marital status: Current occupational status: employed 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 Vital Signs Temp 98.4 F 12/28/19 10:32 Pulse 76 12/28/19 15:00 Resp 17 12/28/19 15:00 BP 111/76 12/28/19 15:00 Pulse Ox 96 12/28/19 15:00 12/28/19 12/28/19 12/28/19 06:59 14:59 22:59 Output Total 325 / 325 Balance -325 / -325 Weight last 48 hrs Weight 95.254 kg Physical Exam Narrative: EXAM NARRATIVE: GEN: Awake, alert and oriented, no acute distress CVS: S1S2 N RS: CTA B/L Abd: Soft, nondistended, tenderness in the area of the right lower quadrant, deep palpation not attempted to avoid any further pain stimulus and resultant syncope PHARMACIST PER DIEM: no focal neuro deficits Data : 12/28/19 10:38 12/28/19 10:38 A&P Assessment and plan (1) Acute appendicitis: Status: Acute Qualifiers: Acute appendicitis type: unspecified acute appendicitis type Qualified Code(s): K35.80 - Unspecified acute appendicitis (2) Vasovagal syncope: Status: Acute (3) Hypertension: Status: Acute Qualifiers: Hypertension type: essential hypertension Qualified Code(s): I10 - Essential (primary) hypertension (4) Left renal mass: Status: Acute (5) Sepsis: Status: Acute Qualifiers: Sepsis type: sepsis due to unspecified organism Sepsis acute organ dysfunction status: without acute organ dysfunction Qualified Code(s): A41.9 - Sepsis, unspecified organism Additional A&P Information Admit to ICU #1 acute appendicitis - CT abdomen/pelvis consistent with acute appendicitis: findings of appendix is distended, estimated at 2 cm. Appendiceal wall thickening, periappendiceal edema/inflammation. [place] [id number] Started empirically on treatment with Zosyn which we will continue at this time. Patient is planned for appendectomy for the above findings, surgery requesting preop clearance. pain control with morphine. Continue IV hydration and n.p.o. for possible surgery today #Sepsis as a result of acute appendicitis. Meet sepsis criteria by way of leukocytosis, tachycardia and source of infection by way of appendicitis. #Vasovagal syncope Per description of reported events of the past history that he describes during the colonoscopy, most likely cause of his bradycardia and hypotension transiently appears to be a vasovagal episode precipitated by pain. He does not have any known cardiac history of CAD, valvular dysfunction, arrhythmias etc. Last echocardiogram dating back to June 2017 is normal. We will repeat one today. He states that at a baseline he is able to walk 2 to 3 miles without any difficulty and is otherwise physically active. Denies any complaints of dyspnea on exertion, orthopnea, lower extremity swelling or any other signs of CHF. No structural heart disease noted on past echocardiogram. Overall goal to control this episode in the future would be to ensure pain control for the patient As such, it does not appear that undergoing urgent surgery is going to put him necessarily at a higher risk of this episode. Since this is seemingly precipitated by pain, similar episodes may happen regardless of whether he is in pain from his appendicitis or whether he is in postop pain. I have explained in detail to the patient that unfortunately there is no way to predict if he will have future similar episodes, however since there does appear to be an identifiable trigger factor, we will attempt to control pain as aggressively as possible. Not addressing his acute appendicitis at this present time will put him at a higher risk of worsening sepsis and eventually comes down to the risk-benefit ratio and at this time he does seem amenable to proceeding with surgery. We will also obtain cardiology opinion regarding the above. 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
--- NOTE | 2019-12-28 16:26 | PC.NURSE ---
preop for surg crew here at this time .
--- NOTE | 2019-12-28 16:29 | ANES.PREANE2 ---
Pre-Anesthetic Assessment Pre-Anesthetic Assessment: Height/Weight: Height 1.73 m Weight 95.254 kg Temp Pulse Resp BP Pulse Ox 98.4 F 75 23 H 124/60 98 12/28/19 10:32 12/28/19 16:00 12/28/19 16:00 12/28/19 16:00 12/28/19 16:00 Proposed Procedure: Operation Date: 12/28/19 16:20 Proposed Procedures p Appendectomy(Not Applicable) - Rogelio Billings MD Last intake: Intake Last Liquid Date 12/28/19 Last Liquid Time 09:00 Last Solid Date 12/27/19 Last Solid Time 19:00 Social: Social History: No alcohol and No tobacco Exam: Pre-Anes Outpt Exam: alert, oriented x 3, clear to auscultation bilaterally and regular rate & rhythm Airway: Submandibular: WNL Cervical ROM: WNL MP: 3 Dentition: Other (teeth ok) History/ROS: No significant history except as noted Pulmonary: Pulmonary: None reported CV/HEM: CV/HEM: Arrythmia (see cardiology note) and HTN : : Chronic renal Insufficiency Hepatic: Hepatic: None reported GI: GI: GERD (occ) Metabolic: Comments: Gout Musc/skel: Musc/skel: None reported Neuropsych: Neuropsych: None reported Anesthetic Plan: ASA status: 2E Anesthesia: Anesthesia Evaluation and General Risk of > 500 ml blood loss (7ml/kg in children): No Meds/Allergies Current Medications: Current Medications Generic Name Dose Route Start Last Admin Trade Name Freq PRN Reason Stop Dose Admin Sodium Chloride 1,000 mls @ 150 m ls/hr 12/28/19 13:30 12/28/19 14:42 Sodium Chloride 0.9% IV 150 mls/hr .[id number] ANGELIQUE Administration PFSH Anesthesia PFSH: Medical History (Updated 12/28/19 @ 16:15 by Mariama Llanos MD) Hypertension Vasovagal syncope Surgical History (Updated 12/28/19 @ 16:07 by Mariama Llanos MD) H/O knee surgery Family History Other Cancer Chronic kidney disease (CKD) Denies family history of Diabetes CAD (coronary artery disease) Clotting disorder Dementia Hyperlipidemia Psychiatric illness Suicide Anesthesia complication Bleeding disorder Family history of premature coronary artery disease Lung disease Hypertension Stroke Social History Smoking and tobacco status: never smoked Alcohol intake: never Lives independently: No Household members: spouse Marital status: 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 occupational status: 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 CBC & Chem 7: 12/28/19 10:38 12/28/19 10:38 Other Labs: Laboratory Results - last 48 hr 12/28/19 12/28/19 12/28/19 10:38 10:38 10:38 WBC 19.8 H RBC 4.97 Hgb 15.7 Hct 47.0 MCV 94.6 H MCH 31.6 MCHC 33.4 RDW 13.0 Plt Count 256 MPV 9.8 Neut % (Auto) 82.4 Lymph % (Auto) 11.0 [place] % (Auto) 5.1 Eos % (Auto) 0.7 Baso % (Auto) 0.5 Neut # (Auto) 16.3 H Lymph # (Auto) 2.2 [place] # (Auto) 1.0 H Eos # (Auto) 0.1 Baso # (Auto) 0.1 Nucleated RBC % (auto) 0 Nucleated RBCs # 0.0 Sodium 134 L Potassium 4.4 Chloride 99 Carbon Dioxide 21 L Anion Gap 18.4 BUN 19 Creatinine 1.3 H GFR Calculation 55.9 L Glucose 122 H Calculated Osmolality 276 L Calcium 9.8 Magnesium Total Bilirubin 0.7 AST 25 ALT 44 H Alkaline Phosphatase 109 Troponin T Baseline 8 Troponin T 120 Minute Delta Troponin T Total Protein 7.6 Albumin 4.4 Globulin 3.2 Lipase 30 Urine Color Urine Appearance Urine pH Ur Specific [place] Urine Protein Urine Glucose (UA) Urine Ketones Urine Blood Urine Nitrate Urine Bilirubin Urine Urobilinogen Ur Leukocyte Esterase 12/28/19 12/28/19 12/28/19 10:38 10:40 12:23 WBC RBC Hgb Hct MCV MCH MCHC RDW Plt Count MPV Neut % (Auto) Lymph % (Auto) [place] % (Auto) Eos % (Auto) Baso % (Auto) Neut # (Auto) Lymph # (Auto) [place] # (Auto) Eos # (Auto) Baso # (Auto) Nucleated RBC % (auto) Nucleated RBCs # Sodium Potassium Chloride Carbon Dioxide Anion Gap BUN Creatinine GFR Calculation Glucose Calculated Osmolality Calcium Magnesium 2.0 Total Bilirubin AST ALT Alkaline Phosphatase Troponin T Baseline Troponin T 120 Minute 7.36 Delta Troponin T -0.64 L Total Protein Albumin Globulin Lipase Urine Color Yellow Urine Appearance Clear Urine pH 5 Ur Specific [place] 1.015 Urine Protein Neg Urine Glucose (UA) Norm Urine Ketones Negative Urine Blood Neg Urine Nitrate Negative Urine Bilirubin Neg Urine Urobilinogen Norm Ur Leukocyte Esterase Negative Cardiac Studies: No Data to Display
[2019-12-28] MEDS: heparin 5,000 unit/mL INJ 1 mL 5000 UNIT SUBCUT (16:42)
[2019-12-28] MEDS: ceFAZolin 1,000 MG in sodium chloride 0.9% (plus) 50 ML 100 MG IV (16:55)
[2019-12-28] MEDS: lidocaine 2% INJ 20 mL INJECTION (17:28)
--- NOTE | 2019-12-28 17:52 | P.OP_ITS ---
Operative Report Date of procedure: December 28, 2019 Pre-op Diagnosis: Acute appendicitis Post-op Diagnosis: PreCecal acute appendicitis with extensive inflammatory process but no perforation or abscess formation Procedure Done: Laparoscopic appendectomy Specimens removed/disposition: Appendix Surgeon: Rogelio Billings Supply Chain Assistant: Surgical scott Ward Circulating nurse Peri Anesthesia: General (Freddy Clarke and Dr. Wood) Estimated blood loss (mL): 25 IV fluids (mL): 1,000 Condition: stable Disposition: ICU Brief History: Mr. Sandro Shine is a pleasant 64 year old male with history of chronic kidney disease and hypertension, presents to the emergency department with worsening abdominal pain on the right side associated with nausea but no vomiting and constipation but no diarrhea patient denies any shortness of breath or dysuria, pain started at the epigastric region yesterday evening and started to go towards the right lower quadrant, dull aching in nature and nothing seems to make it better yet moving makes it worse and palpation of the belly. Patient also denies any fevers or chills Patient presented to the emergency department for further evaluation and apparently he did have a bradycardia in the 30s followed by asystole for 8 seconds and required CPR as he did not have a pulse at that point CPR ranged around 15 seconds and the patient was revived which could be due to vasovagal episode, patient reports that this happened before when I asked him about previous colonoscopy as he did report that it happened during the colonoscopy about 12 years ago. General surgery was consulted for further evaluation and potential intervention, patient was seen and evaluated in the emergency department in room (12). Blood work should leukocytosis of 19,000 plus and a baseline creatinine of 1.3 After thorough history physical examination and reviewing the chart and images with my personal interpretation and after further cardiac and medical work-up and the patient being evaluated by my partners Dr. Lucas and Dr. Way has been cleared by cardiac service, and informed consent per chart for laparoscopic appendectomy possible open. Procedure: Patient after being identified in the ICU and asked to void urine, and informed consent per chart ,patient was then taken back to the OR placed in supine position got intubated by anesthesia left arm was tucked tucked ,Timeout was done verifying the patient's name/date of /planned procedure and destination after the procedure, all were in agreement., preoperative antibiotics administered per protocol. prep and drape of the abdomen was done under the usual sterile technique. 3000 units of heparin subcu were given as a prophylactic dose. Started by longitudinal skin incision supraumbilical using a Hidalgo trocar technique safe entry to the abdominal cavity was achieved verified by using 10 mm zero degree laparoscopy, switched to a 30? scope under direct visualization a suprapubic 5 mm trocar was inserted followed by another 5 mm trocar inserted in the left lower quadrant, I was able to position the patient in an T [place] and left side down, dissection of the prececal acutely inflamed appendix there was some adhesions towards the lateral pelvic wall that was taken down by sharp and blunt dissection, extensive inflammatory process was noticed involving the ileocecal junction yet there were no masses palpable or perforation was appreciated, attention was deviated to the healthier base of the appendix where I had to switch the camera to 5 mm 30? scope got introduced through the left lower quadrant and through the Hidalgo trocar under direct visualization a GI stapler 45 mm blue load was applied at the healthy part of the base of the appendix, and an Endoloop PDS was applied onto the mesoappendix for control , the appendix was then retrieved in an Endo Catch bag, final survey was done of the abdomen and pelvis , thorough irrigation with warm saline about 2 liters, and suction was obtained. Silk sutures 2 oh on SH needle were applied onto the pardeep-cecal fat as there was some oozing rom the pericaecal fatty Appendeges and that incorporated the cecal/appendectomy staple line as well. also 5 mm clips were applied onto the mesoappendix for minimal oozing Final look laparoscopy was done showing no other abnormalities or injuries that there were some intra-abdominal adhesions there were kept without taking them down as they were away from the field of surgery and there was no evidence of intraperitoneal carcinomatosis. All trocars were taken out under direct visualization after the supraumblical trocar site was closed by numebr 1 PDS sutures under direct vision using fascial closure device,followed by 3/0 vicryl subdermal ,followed by skin closure using skin keanu of all trocar site incisions. infiltration of local lidocaine 2% was done to all incision sites.Dry dressing was applied. Count was completed at the end of the procedure for [place],sponges and instruments Patient tolerated the procedure well and was transferred to the recovery area after extubation. I was present for the whole entire procedure
--- NOTE | 2019-12-28 19:05 | PC.NURSE ---
Report received. Patient awake and resting quietly in bed, VSS, on room air. No acute signs of distress, denies pain. Lap sites clean, dry, and intact.
[2019-12-28 19:10] LABS: Lactic Sepsis W/Reflex 2.5 mmol/L (0.5-2.2); Troponin 5 6HR 6.94 ng/L (0-15)
[2019-12-28 19:13] LABS: Troponin 5 6HR Delta -1.06 ng/L (0-12)
[2019-12-28 20:28] LABS: Reflex Lactate Order REFLEX LACTIC ORDERD
[2019-12-28] MEDS: ondansetron 2 mg/ML SDV 2 mL 4 MG IVP (20:45)
[2019-12-28] MEDS: acetaminophen 325 mg Tablet 650 MG PO (20:48)
[2019-12-28 21:28] LABS: Lactic Acid level (Lactate) 3.2 mmol/L (0.5-2.2)
[2019-12-29] VITALS (17 sets, daily range): BP systolic 93–121; BP diastolic 62–79; PULSE 70–99; RESP 13–24; TEMP 36.7–37.2; O2SAT 88–999
[2019-12-29 03:43] LABS: Alanine Aminotransferase 26 U/L (0-41); Albumin Level 3.8 g/dL (3.5-5.2); Alkaline Phosphatase 83 IU/L (40-130); Anion Gap 18.5 (5-19); Aspartate Amino Transferase 14 U/L (0-40); Blood Urea Nitrogen 21 mg/dL (8-23); Calcium 8.7 mg/dL (8.5-10.5); Carbon Dioxide 19 mmol/L (22-29); Chloride 104 mmol/L (98-107); Globulin 2.1 g/dL (1.3-4.6); Glomerular Filtration Rate 55.9 mL/min (90-130); Glucose 165 mg/dL (65-115); Magnesium 1.7 mg/dL (1.7-2.3); Osmolality Calculated 284 mOsm/kg (285-295); Potassium 4.5 mmol/L (3.5-5.1); Sodium 137 mmol/L (136-145); Total Bilirubin 0.6 mg/dL (0.15-1.2); Total Protein 5.9 g/dL (6.6-8.7)
[2019-12-29 03:48] LABS: Estmated Average Glucose 114; Hemoglobin A1C 5.6 % (4.0-6.0)
[2019-12-29] MEDS: piperacillin-tazobactam 3.375 GM in sodium chloride 0.9% (plus) 50 ML IV ×3 (04:37→22:42)
[2019-12-29] MEDS: acetaminophen 325 mg Tablet 650 MG PO ×2 (04:37→17:58)
[2019-12-29] MEDS: sodium chloride 0.9% 1,000 ML 150 ML IV ×3 (04:38→22:43)
--- NOTE | 2019-12-29 05:33 | PM.PN ---
Subjective Subjective: Interval history: Overall patient is doing well and feeling better,did not pass gas yet Pain is under control Trending up in Leucocytosis Vitals/I&O/Wt Last Vital Signs Temp 98.5 F 12/29/19 00:00 Pulse 89 12/29/19 02:00 Resp 14 12/29/19 02:00 BP 101/67 12/29/19 02:00 Pulse Ox 91 12/29/19 02:00 12/28/19 12/28/19 12/29/19 14:59 22:59 06:59 Intake Total 2001.5 / 2001.5 1050 / 3052.5 Output Total 325 / 325 175 / 500 Balance -325 / -325 1827.5 / 1502.5 1050 / 2552.5 Weight last 48 hrs Weight 210 lb Physical Exam Narrative: EXAM NARRATIVE: Patient is conscious alert oriented X3 BMI 32 Head and neck examination PERRLA no masses no cervical lymphadenopathy no jaundice Cardiac examination audible S1-S2 no murmurs no gallops no arrhythmias Chest is clear bilateral,abscence of Rhonchi or wheezes,no surgical emphysema Abdomen nontender nondistended soft no organomegaly guarding or rigidity/no signs of peritonitis/dressing in place Extremities no cyanosis no clubbing no edema Data : 12/29/19 03:04 12/29/19 03:04 A&P Assessment and plan (1) Acute appendicitis: Status post laparoscopic appendectomy operative day 1 Once patient starts passing gas will start the patient on clear liquid diet otherwise he can have some popsicles for now. Encourage ambulation Incentive spirometer every hour Continue IV antibiotics due to trending up in Lecucytosis From surgical standpoint of view patient can be transferred to the floor pending hospitalist clearance' We will continue to follow Thank you for consulting general surgery to participate taking care Mr Boykin Status: Resolved Qualifiers: Acute appendicitis type: unspecified acute appendicitis type Qualified Code(s): K35.80 - Unspecified acute appendicitis Attestations Medical Necessity Statement*: Per Hospitalist service Time Spent in Patient Care: (>than 50% of time spent in counselling and/or direct pt care on unit). 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
[2019-12-29 05:37] LABS: Basophils % 0.1 %; Lymphocytes # 0.9 10^3/uL (0.8-4.8); Lymphocytes % 4.5 %; Mean Corpuscular HGB Conc 34.2 g/dL (30.0-36.0); Mean Corpuscular Volume 93.6 fL (80-94); Mean Platelet Volume 9.5 fL (7.4-10.4); Monocytes # 0.5 10^3/uL (0.2-0.9); Monocytes % 2.2 %; Neutrophils # 18.9 10^3/uL (1.8-7.7); Neutrophils % 92.9 %; Nucleated Red Blood Cells % 0 %; Platelet Count 248 10^3/cmm (130-400); Red Blood Count 4.06 10^6/uL (4.1-5.3); White Blood Count 20.4 10^3/uL (4.0-10.0)
--- NOTE | 2019-12-29 11:23 | PM.PN ---
Subjective Subjective: Interval history: States that he is doing well, no chest pain, no palpitations, no lightheadedness, dizziness pain is well controlled, he is a bit hungry but has not had a bowel movement as of yet, not passing gas, is kept n.p.o., he is worried about his left renal mass, Vitals/I&O/Wt Last Vital Signs Temp 98.2 F 12/29/19 10:00 Pulse 88 12/29/19 10:00 Resp 21 H 12/29/19 10:00 BP 99/65 12/29/19 10:00 Pulse Ox 92 12/29/19 10:00 12/28/19 12/29/19 12/29/19 22:59 06:59 14:59 Intake Total 2001.5 / 2001.5 1050 / 3052.5 240 / 240 Output Total 175 / 500 300 / 800 Balance 1827.5 / 1502.5 750 / 2252.5 240 / 240 Weight last 48 hrs Weight 95.254 kg Physical Exam Const: COMMON NORMALS: no acute distress and patient oriented x3 HENMT: COMMON NORMALS: normocephalic HEAD & SCALP: normocephalic Neck/C-Spine: COMMON NORMALS: no JVD Resp: COMMON NORMALS: normal respiratory effort, No retractions, No use of accessory muscles and clear to auscultation bilaterally AUSCULTATION: clear to auscultation bilaterally Cardio: COMMON NORMALS: no JVD, regular rate, regular rhythm, S1 normal heart sound present and S2 normal heart sound present RATE: regular rate RHYTHM: regular rhythm HEART SOUNDS: S1 normal heart sound present and S2 normal heart sound present GI: COMMON NORMALS: Normal to inspection, nondistended, normoactive bowel sounds present, Soft to palpation, non-tender, No hepatosplenomegaly present, no masses and no bruits PALPATION: Yes Soft to palpation and Yes No hepatosplenomegaly present OTHER: -Surgical site bandages, look clean and dry Extremity: COMMON NORMALS: capillary refill normal, no clubbing, cyanosis or edema, no calf tenderness and no pedal edema Neuro: COMMON NORMALS: patient oriented x3 Psych: COMMON NORMALS: mental status grossly normal Data : 12/29/19 03:04 12/29/19 03:04 A&P Assessment and plan (1) Acute appendicitis: Status: Resolved Qualifiers: Acute appendicitis type: unspecified acute appendicitis type Qualified Code(s): K35.80 - Unspecified acute appendicitis (2) Vasovagal syncope: Status: Acute (3) Hypertension: Status: Acute Qualifiers: Hypertension type: essential hypertension Qualified Code(s): I10 - Essential (primary) hypertension (4) Left renal mass: Status: Acute (5) Sepsis: Status: Acute Qualifiers: Sepsis type: sepsis due to unspecified organism Sepsis acute organ dysfunction status: without acute organ dysfunction Qualified Code(s): A41.9 - Sepsis, unspecified organism Additional A&P Information Admit to ICU #1 acute appendicitis status post laparoscopic appendectomy -No perforation or abscess formation -WBC elevated at 20.4 -Started empirically on treatment with Zosyn which we will continue at this time. -Continue IV hydration and n.p.o., aspirin as per surgery #Sepsis as a result of acute appendicitis. Meet sepsis criteria by way of leukocytosis, tachycardia and source of infection by way of appendicitis. #Vasovagal syncope -No repeat episodes since he has been in the ICU, no acute telemetry events -In the emergency room patient had 2 episodes, one episode of bradycardia, one episode of bradycardia followed by asystole but no loss of pulse, received chest compressions briefly, returned to junctional rhythm, Per description of reported events of the past history that he describes during the colonoscopy, most likely cause of his bradycardia and hypotension transiently appears to be a vasovagal episode precipitated by pain. He does not have any known cardiac history of CAD, valvular dysfunction, arrhythmias etc. Last echocardiogram dating back to June 2017 is normal. We will repeat one today. He states that at a baseline he is able to walk 2 to 3 miles without any difficulty and is otherwise physically active. Denies any complaints of dyspnea on exertion, orthopnea, lower extremity swelling or any other signs of CHF. No structural heart disease noted on past echocardiogram. 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
--- NOTE | 2019-12-29 12:01 | PC.NURSE ---
TRANSFER TO FLOOR Patient transferred to 261. All belongings sent with patient. Patient oriented to room and call light within reach.
[2019-12-29] MEDS: heparin 5,000 unit/mL INJ 1 mL 5000 UNIT SUBCUT ×2 (15:13→22:43)
[2019-12-29] MEDS: ketorolac 30 mg/mL INJ 15 MG IVP (21:15)
[2019-12-30] VITALS: BP 108/70; PULSE 92; RESP 20; TEMP 36.6; O2SAT 93
[2019-12-30 04:00] VITALS: BP 112/62; PULSE 87; RESP 20; TEMP 36.8; O2SAT 94
[2019-12-30] MEDS: piperacillin-tazobactam 3.375 GM in sodium chloride 0.9% (plus) 50 ML IV ×3 (04:05→19:54)
[2019-12-30] MEDS: acetaminophen 325 mg Tablet 650 MG PO ×3 (04:08→19:54)
[2019-12-30 05:14] LABS: Basophils % 0.3 %; Eosinophils % 0.3 %; Hematocrit 36.3 % (42.0-52.0); Hemoglobin 12.2 g/dL (11.7-16.6); Lymphocytes # 2.3 10^3/uL (0.8-4.8); Lymphocytes % 14.5 %; Mean Corpuscular HGB Conc 33.6 g/dL (30.0-36.0); Mean Corpuscular Hemoglobin 32.3 pg (28.0-34.0); Mean Platelet Volume 9.3 fL (7.4-10.4); Monocytes # 1.1 10^3/uL (0.2-0.9); Monocytes % 6.7 %; Neutrophils # 12.3 10^3/uL (1.8-7.7); Neutrophils % 77.5 %; Nucleated Red Blood Cells % 0 %; Platelet Count 244 10^3/cmm (130-400); Red Blood Count 3.78 10^6/uL (4.1-5.3); Red Cell Distribution Width 13.2 % (12.1-15.1); White Blood Count 15.8 10^3/uL (4.0-10.0)
[2019-12-30 05:36] LABS: Alanine Aminotransferase 22 U/L (0-41); Albumin Level 3.6 g/dL (3.5-5.2); Alkaline Phosphatase 73 IU/L (40-130); Anion Gap 16.5 (5-19); Aspartate Amino Transferase 15 U/L (0-40); Blood Urea Nitrogen 24 mg/dL (8-23); Calcium 8.8 mg/dL (8.5-10.5); Carbon Dioxide 22 mmol/L (22-29); Chloride 104 mmol/L (98-107); Glucose 107 mg/dL (65-115); Magnesium 2.2 mg/dL (1.7-2.3); Osmolality Calculated 283 mOsm/kg (285-295); Potassium 4.5 mmol/L (3.5-5.1); Sodium 138 mmol/L (136-145); Total Bilirubin 0.6 mg/dL (0.15-1.2); Total Protein 5.6 g/dL (6.6-8.7)
[2019-12-30 05:37] LABS: Phosphorus 2.5 mg/dL (2.5-4.5)
--- NOTE | 2019-12-30 05:41 | PM.PN ---
Subjective Subjective: Interval history: Patient overall feels well and continues to pass gas Trending down and leukocytosis Vitals/I&O/Wt Last Vital Signs Temp 98.2 F 12/30/19 04:00 Pulse 87 12/30/19 04:00 Resp 20 H 12/30/19 04:00 BP 112/62 12/30/19 04:00 Pulse Ox 94 12/30/19 04:00 12/29/19 12/29/19 12/30/19 14:59 22:59 06:59 Intake Total 1290 / 1290 1410 / 2700 50 / 2750 Output Total 0 / 0 Balance 1290 / 1290 1410 / 2700 50 / 2750 Weight last 48 hrs Weight 210 lb Physical Exam Narrative: EXAM NARRATIVE: Patient is conscious alert oriented X3 BMI 32 Head and neck examination PERRLA no masses no cervical lymphadenopathy no jaundice Cardiac examination audible S1-S2 no murmurs no gallops no arrhythmias Chest is clear bilateral,abscence of Rhonchi or wheezes,no surgical emphysema Abdomen nontender nondistended soft no organomegaly guarding or rigidity/no signs of peritonitis/incisions are clean dry and intact and skin keanu in place Extremities no cyanosis no clubbing no edema Data : 12/31/19 02:50 12/31/19 02:50 A&P Assessment and plan (1) Acute appendicitis: Advance diet as tolerated With a trending down leukocytosis, will continue antibiotics my recommendation is to continue IV antimicrobial therapy for 24 hours and potential discharge home tomorrow Pharmacologic DVT prophylaxis Thank you for consulting general surgery to participate taking care Status: Resolved Qualifiers: Acute appendicitis type: unspecified acute appendicitis type Qualified Code(s): K35.80 - Unspecified acute appendicitis (2) Vasovagal syncope: Will defer to Dr. Yusuf and Dr. Way for further evaluation and work-up and cardiac follow-up down the road Status: Acute (3) Left renal mass: Did discuss with the case with Dr. Hutchinson and reviewed images with him and he recommended to have the patient follow-up with him as an outpatient for potential consultation with urology service in [facility] for potential intervention Status: Acute Attestations Medical Necessity Statement*: Medical necessity care is expected to cross 2 midnights Time Spent in Patient Care: (>than 50% of time spent in counselling and/or direct pt care on unit). 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
[2019-12-30 05:47] LABS: Procalcitonin 0.24 ng/mL (0-0.5)
[2019-12-30 07:11] VITALS: BP 107/70; PULSE 82; RESP 17; TEMP 36.5; O2SAT 97
[2019-12-30 11:07] VITALS: BP 120/75; PULSE 74; RESP 18; TEMP 36.8; O2SAT 97
[2019-12-30] MEDS: heparin 5,000 unit/mL INJ 1 mL 5000 UNIT SUBCUT ×2 (11:55→23:17)
[2019-12-30] MEDS: sodium chloride 0.9% 1,000 ML 150 ML IV ×2 (11:55→23:17)
--- NOTE | 2019-12-30 12:33 | P.PN_ITS ---
Subjective Subjective: Interval history: This morning patient is doing well, no fevers, no chills, no nausea, no vomiting, no lightheadedness, no dizziness has not had a bowel movement yet, is on a GI soft diet Vitals/I&O/Wt Last Vital Signs Temp 98.2 F 12/30/19 11:07 Pulse 74 12/30/19 11:07 Resp 18 12/30/19 11:07 BP 120/75 12/30/19 11:07 Pulse Ox 97 12/30/19 11:07 12/29/19 12/30/19 12/30/19 22:59 06:59 14:59 Intake Total 1410 / 2700 1050 / 3750 360 / 360 Output Total 0 / 0 Balance 1410 / 2700 1049 / 3749 360 / 360 Physical Exam Const: COMMON NORMALS: no acute distress and patient oriented x3 HENMT: COMMON NORMALS: normocephalic HEAD & SCALP: normocephalic Neck/C-Spine: COMMON NORMALS: no JVD Resp: COMMON NORMALS: normal respiratory effort, No retractions, No use of accessory muscles and clear to auscultation bilaterally AUSCULTATION: clear to auscultation bilaterally Cardio: COMMON NORMALS: no JVD, regular rate, regular rhythm, S1 normal heart sound present and S2 normal heart sound present RATE: regular rate RHYTHM: regular rhythm HEART SOUNDS: S1 normal heart sound present and S2 normal heart sound present GI: COMMON NORMALS: Normal to inspection, nondistended, normoactive bowel sounds present, Soft to palpation, non-tender, No hepatosplenomegaly present, no masses and no bruits PALPATION: Yes Soft to palpation and Yes No hepatospl enomegaly present OTHER: Surgical site looks clean and dry Extremity: COMMON NORMALS: capillary refill normal, no clubbing, cyanosis or edema, no calf tenderness and no pedal edema Neuro: COMMON NORMALS: patient oriented x3 Psych: COMMON NORMALS: mental status grossly normal Data : 12/30/19 04:56 12/30/19 04:56 A&P Assessment and plan (1) Acute appendicitis: Status: Resolved Qualifiers: Acute appendicitis type: unspecified acute appendicitis type Qualified Code(s): K35.80 - Unspecified acute appendicitis (2) Vasovagal syncope: Status: Acute (3) Hypertension: Status: Acute Qualifiers: Hypertension type: essential hypertension Qualified Code(s): I10 - Essential (primary) hypertension (4) Left renal mass: Status: Acute (5) Sepsis: Status: Acute Qualifiers: Sepsis type: sepsis due to unspecified organism Sepsis acute organ dysfunction status: without acute organ dysfunction Qualified Code(s): A41.9 - Sepsis, unspecified organism Additional A&P Information Admit to ICU #1 acute appendicitis status post laparoscopic appendectomy postoperative day 2 -No perforation or abscess formation -WBC elevated decreased to 15.8 -Started empirically on treatment with Zosyn which we will continue at this time. -Continue IV hydration and GI soft diet, aspirin as per surgery #Sepsis as a result of acute appendicitis. Resolved Acute kidney injury, creatinine up to 1.6, encourage oral hydration, continue IV fluids, avoid Toradol #Vasovagal syncope -No repeat episodes since he has been in the ICU, no acute telemetry events -In the emergency room patient had 2 episodes, one episode of bradycardia, one episode of bradycardia followed by asystole but no loss of pulse, received chest compressions briefly, returned to junctional rhythm, Per description of reported events of the past history that he describes during the colonoscopy, most likely cause of his bradycardia and hypotension transiently appears to be a vasovagal episode precipitated by pain. He does not have any known cardiac history of CAD, valvular dysfunction, arrhythmias etc. Last echocardiogram dating back to June 2017 is normal. We will repeat one today. He states that at a baseline he is able to walk 2 to 3 miles without any di fficulty and is otherwise physically active. Denies any complaints of dyspnea on exertion, orthopnea, lower extremity swelling or any other signs of CHF. No structural heart disease noted on past echocardiogram. 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
[2019-12-30 15:25] VITALS: BP 123/81; PULSE 82; RESP 18; TEMP 36.8; O2SAT 97
[2019-12-30 20:00] VITALS: BP 125/75; PULSE 81; RESP 20; TEMP 37.2; O2SAT 96
--- NOTE | 2019-12-30 20:18 | P.PN_ITS ---
Subjective Subjective: Interval history: He underwent laproscopic appendectomy without any complaications. Medications: Reviewed: Yes Medication Review Details: Current Medications Acetaminophen (Tylenol) 650 mg PO Q6H PRN PRN Reason: Mild/Mod Pain Or Temp >/= 101 Last Admin: 12/30/19 19:54 Dose: 650 mg Documented by: Heparin Sodium (Beef Lung) (Heparin) 5,000 unit SUBCUT Q12H ANGELIQUE Last Admin: 12/30/19 11:55 Dose: 5,000 unit Documented by: Hydralazine HCl (Apresoline) 5 mg IVP Q4H PRN PRN Reason: SBP>160 Sodium Chloride (Sodium Chloride 0.9%) 1,000 mls @ 50 mls/hr IV .Q20H [facility] Last Admin: 12/30/19 11:55 Dose: 150 mls/hr Documented by: Piperacillin Sod/Tazobactam (Sod 3.375 gm/ Sodium Chloride) 50 mls @ 12.5 mls/hr IV Q8H [facility]; Protocol Last Admin: 12/30/19 19:54 Dose: 12.5 mls/hr Documented by: Morphine Sulfate (Morphine) 4 mg IVP Q4H PRN PRN Reason: SEVERE PAIN Last Admin: 12/28/19 23:33 Dose: 4 mg Documented by: Naloxone HCl (Narcan) 0.1 mg IVP Q2M PRN PRN Reason: OPIATERV Ondansetron HCl (Zofran) 4 mg IVP Q6H PRN PRN Reason: NAUSEA AND VOMITING Last Admin: 12/28/19 20:45 Dose: 4 mg Documented by: Vitals/I&O/Wt Last Vital Signs Temp 99.0 F 12/30/19 20:00 Pulse 81 12/30/19 20:00 Resp 20 H 12/30/19 20:00 BP 125/75 12/30/19 20:00 Pulse Ox 96 12/30/19 20:00 12/30/19 12/30/19 12/30/19 06:59 14:59 22:59 Intake Total 1050 / 3750 890 / 890 290 / 1180 Output Total Balance 1049 / 3749 890 / 890 290 / 1180 Physical Exam Const: COMMON NORMALS: no acute distress, patient oriented x3 and alert GENERAL APPEARANCE: cooperative, comfortable, well kempt and well hydrated HENMT: COMMON NORMALS: hearing grossly normal bilaterally, external ears normal and moist oral mucous membranes FACE & SINUS: normal facial exam NOSE: Normal septum present and No nasal discharge present; no Epistaxis present EXTERNAL EAR: Yes external ears normal MOUTH: lip normal Eye: COMMON NORMALS: EOMs intact bilaterally and no scleral icterus GENERAL EYE: appearance normal, both eyes and all related structures ALIGNMENT: Yes alignment normal Neck/C-Spine: COMMON NORMALS: supple and no JVD GENERAL: Yes normal visual inspection CAROTIDS: Yes normal carotid upstroke Resp: COMMON NORMALS: clear to auscultation bilaterally AUSCULTATION: clear to auscultation bilaterally, no crackles, no rales, no rhonchi and no wheezes Cardio: COMMON NORMALS: no JVD, regular rate, regular rhythm, S1 normal heart sound present, S2 normal heart sound present and Peripheral pulses 2+ throughout PALPATION: normal PMI RATE: regular rate RHYTHM: regular rhythm H EART SOUNDS: S1 normal heart sound present, S2 normal heart sound present, no gallops and no murmurs BRUITS: no carotid bruits PERIPHERAL PULSES: Peripheral pulses 2+ throughout, radial pulses present, posterior tibial pulses present and dorsalis pedis present GI: COMMON NORMALS: Soft to palpation AUSCULTATION: Yes normoactive bowel sounds PALPATION: Yes Soft to palpation, No Tenderness to palpation present (GI), No Guarding due to palpation present (GI) and No Rigid due to palpation Extremity: GENERAL: No cyanosis, Yes edema and No pallor Neuro: COMMON NORMALS: patient oriented x3 and CN's II-XII intact bilaterally SENSORIUM/ORIENTATION: Yes alert Psych: COMMON NORMALS: Normal thought process present and speech normal APPEARANCE: Yes well kempt SPEECH: Yes normal speech MOOD & AFFECT: Yes euthymic mood THOUGHT PROCESS: Normal thought process present THOUGHT CONTENT: Yes Normal thought content present Data : 12/30/19 04:56 12/30/19 04:56 A&P Assessment and plan (1) Vasovagal syncope: no recurrent episodes. Last episode 12 years ago. -I do not think event monitor is needed at this point. -advised to keep a log of BP and HR. -Plan to follow him up in 1 month with me in [facility]. -I will sign off. Status: Acute (2) Acute appendicitis: s/p surgery. 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
[2019-12-31] VITALS: BP 115/75; PULSE 75; RESP 20; TEMP 36.7; O2SAT 97
[2019-12-31] MEDS: acetaminophen 325 mg Tablet 650 MG PO ×2 (02:52→07:25)
[2019-12-31 03:13] LABS: Basophils # 0.1 10^3/uL (0.0-0.1); Basophils % 0.7 %; Eosinophils # 0.2 10^3/uL (0.0-0.8); Eosinophils % 1.7 %; Hematocrit 33.6 % (42.0-52.0); Hemoglobin 11.3 g/dL (11.7-16.6); Lymphocytes # 2.8 10^3/uL (0.8-4.8); Mean Corpuscular HGB Conc 33.6 g/dL (30.0-36.0); Mean Corpuscular Hemoglobin 32.1 pg (28.0-34.0); Mean Corpuscular Volume 95.5 fL (80-94); Mean Platelet Volume 9.3 fL (7.4-10.4); Monocytes # 0.8 10^3/uL (0.2-0.9); Monocytes % 8.2 %; Neutrophils # 5.8 10^3/uL (1.8-7.7); Nucleated Red Blood Cells % 0 %; Platelet Count 268 10^3/cmm (130-400); Red Blood Count 3.52 10^6/uL (4.1-5.3); Red Cell Distribution Width 13.2 % (12.1-15.1); White Blood Count 9.6 10^3/uL (4.0-10.0)
[2019-12-31 04:00] VITALS: BP 132/56; PULSE 72; RESP 20; TEMP 37.2; O2SAT 95
[2019-12-31 04:00] LABS: Phosphorus 2.9 mg/dL (2.5-4.5)
[2019-12-31 04:02] LABS: Alanine Aminotransferase 24 U/L (0-41); Albumin Level 3.3 g/dL (3.5-5.2); Alkaline Phosphatase 78 IU/L (40-130); Anion Gap 14.5 (5-19); Aspartate Amino Transferase 19 U/L (0-40); Blood Urea Nitrogen 23 mg/dL (8-23); Calcium 8.5 mg/dL (8.5-10.5); Carbon Dioxide 23 mmol/L (22-29); Chloride 106 mmol/L (98-107); Globulin 2.4 g/dL (1.3-4.6); Glomerular Filtration Rate 55.9 mL/min (90-130); Glucose 100 mg/dL (65-115); Osmolality Calculated 285 mOsm/kg (285-295); Potassium 4.5 mmol/L (3.5-5.1); Sodium 139 mmol/L (136-145); Total Bilirubin 0.5 mg/dL (0.15-1.2); Total Protein 5.7 g/dL (6.6-8.7)
[2019-12-31 04:05] LABS: Procalcitonin 0.16 ng/mL (0-0.5)
[2019-12-31] MEDS: piperacillin-tazobactam 3.375 GM in sodium chloride 0.9% (plus) 50 ML IV (04:47)
--- NOTE | 2019-12-31 06:24 | P.PN_ITS ---
Subjective Subjective: Interval history: Patient overall is doing well and continues to tolerate well p.o. intake and passing gas Leukocytosis back to normal Vitals/I&O/Wt Last Vital Signs Temp 98.9 F 12/31/19 04:00 Pulse 72 12/31/19 04:00 Resp 20 H 12/31/19 04:00 BP 132/56 12/31/19 04:00 Pulse Ox 95 12/31/19 04:00 12/30/19 12/30/19 12/31/19 14:59 22:59 06:59 Intake Total 890 / 890 1510 / 2400 50 / 2450 Balance 890 / 890 1510 / 2400 50 / 2450 Physical Exam Narrative: EXAM NARRATIVE: Patient is conscious alert oriented X3 BMI 32 Head and neck examination PERRLA no masses no cervical lymphadenopathy no jaundice Abdomen nontender nondistended soft no organomegaly guarding or rigidity/no signs of peritonitis/incisions are clean dry and intact and skin keanu in Extremities no cyanosis no clubbing no edema Data : 12/31/19 02:50 12/31/19 02:50 A&P Assessment and plan (1) Acute appendicitis: From surgical standpoint of view patient can be discharged home today and follow-up with me at the office in 7 to 10 days Thank you for consulting general surgery to participate taking care Status: Resolved Qualifiers: Acute appendicitis type: unspecified acute appendicitis type Qualified Code(s): K35.80 - Unspecified acute appendicitis (2) Vasovagal syncope: Will defer to Dr. Yusuf and Dr. Wya for further evaluation and work-up and cardiac follow-up down the road Status: Acute (3) Left renal mass: Urology outpatient follow-up with Dr. Hutchinson first available Status: Acute Attestations Medical Necessity Statement*: Medical necessity care is expected to cross 2 midnights Time Spent in Patient Care: (>than 50% of time spent in counselling and/or direct pt care on unit) . 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
[2019-12-31 07:56] VITALS: BP 118/72; PULSE 75; RESP 18; TEMP 36.9; O2SAT 96
[2019-12-31 11:36] VITALS: BP 130/72; PULSE 58; RESP 18; TEMP 36.7; O2SAT 98
--- NOTE | 2019-12-31 12:22 | P.DS_ITS ---
Discharge Providers Date of Admission: 12/28/19 13:19 Date of Discharge: December 31, 2019 Attending Provider at Admission: Mariama Llanos MD Attending Provider at Discharge: Marvel Nichols MD Primary Care Provider: Ayo Miles DO Diagnoses at Discharge Discharge Diagnosis (1) Acute appendicitis: Status: Resolved Qualifiers: Acute appendicitis type: unspecified acute appendicitis type Qualified Code(s): K35.80 - Unspecified acute appendicitis (2) Vasovagal syncope: Status: Acute (3) Left renal mass: Status: Acute Reason for Visit Reason for Visit: RIGHT SIDE PAIN Hospital Course Discharge Summary: This is a 64-year-old male with a past medical history of hypertension who presents to [facility] for abdominal pain. Patient was found to have acute appendicitis with sepsis, was admitted to the ICU, started on broad-spectrum antibiotics, status post laparoscopic appendectomy by Dr. Billings, no perforation, no abscess, tolerated the surgical procedure well, continued on broad-spectrum antibiotics for next 48 hours, moved to the general medical floor, did well, remained afebrile, ambulating well, discharged on 7 remaining days of Cipro and Flagyl with close follow-up with Dr. Melendrez as outpatient. Patient was also found to have a left renal mass exophytic on imaging, concerning for renal cell carcinoma, patient was advised of this diagnosis, voiced understanding, all questions answered, he agreed to follow-up with Dr. Hutchinson as outpatient and will likely will require referral to [facility] for surgical intervention. In the emergency room patient was found to have 2 episodes of vasovagal syncope -In the emergency room patient had 2 episodes, one episode of bradycardia, one episode of bradycardia followed by asystole but no loss of pulse, received chest compressions briefly, returned to junctional rhythm, -Per description of reported events of the past history that he describes a similar event during the colonoscopy, most likely cause of his bradycardia and hypotension transiently appears to be a vasovagal episode precipitated by pain. He does not have any known cardiac history of CAD, valvular dysfunction, arrhythmias etc. Last echocardiogram dating back to June 2017 is normal. He states that at a baseline he is able to walk 2 to 3 miles without any difficulty and is otherwise physically active. Denies any complaints of dyspnea on exertion, orthopnea, lower extremity swelling or any other signs of CHF. No structural heart disease noted on past echocardiogram. Echocardiogram on this admission shows ejection fraction of 60%, no regional wall motion abnormalities -No repeat episodes seen during his admission, no acute telemetry events, did well during his hospital admission -Was seen by cardiology as patient -Patient was advised to follow-up with Dr. Cuevas as outpatient -If he were to have recurrent events please call 911 Physical Exam Const: COMMON NORMALS: no acute distress and patient oriented x3 HENMT: COMMON NORMALS: normocephalic HEAD & SCALP: normocephalic Neck/C-Spine: COMMON NORMALS: no JVD Resp: COMMON NORMALS: normal respiratory effort, No retractions, No use of acc essory muscles and clear to auscultation bilaterally AUSCULTATION: clear to auscultation bilaterally Cardio: COMMON NORMALS: no JVD, regular rate, regular rhythm, S1 normal heart sound present and S2 normal heart sound present RATE: regular rate RHYTHM: regular rhythm HEART SOUNDS: S1 normal heart sound present and S2 normal heart sound present GI: COMMON NORMALS: Normal to inspection, nondistended, normoactive bowel sounds present, Soft to palpation, non-tender, No hepatosplenomegaly present, no masses and no bruits PALPATION: Yes Soft to palpation and Yes No hepatosplenomegaly present OTHER: Surgical site looks clean and dry Extremity: COMMON NORMALS: capillary refill normal, no clubbing, cyanosis or edema, no calf tenderness and no pedal edema Neuro: COMMON NORMALS: patient oriented x3 Psych: COMMON NORMALS: mental status grossly normal Discharge Data Data Completed and Pending: Completed Studies During Hospitalization Category Date Time Status CT abdomen pelvis w con* [id number] Urge nt Cat Scan 12/28/19 10:38 Completed XR chest 1V nadine ble [id number] Stat Exams 12/28/19 13:21 Completed Pathology: Surgic al [PTH] Routine Pth 12/28/19 18:18 Completed CV echo complete* [id number] Stat Ultrasound 12/28/19 15:39 Completed Pending at discharge Category Date Time Status ES surgery / GI i mages Routine Exams 12/28/19 16:06 Taken Complete Blood Co unt w/Auto AM LABS Lab 01/01/20 04:00 Ordered Phosphorus AM LAB S Lab 01/01/20 04:00 Ordered Procalcitonin AM LABS Lab 01/01/20 04:00 Ordered Labs from last 24 hours 12/31/19 12/31/19 12/31/19 02:50 02:50 02:50 WBC 9.6 RBC 3.52 L Hgb 11.3 L Hct 33.6 L MCV 95.5 H MCH 32.1 MCHC 33.6 RDW 13.2 Plt Count 268 MPV 9.3 Neut % (Auto) 60.0 Lymph % (Auto) 29.0 [place] % (Auto) 8.2 Eos % (Auto) 1.7 Baso % (Auto) 0.7 Neut # (Auto) 5.8 Lymph # (Auto) 2.8 [place] # (Auto) 0.8 Eos # (Auto) 0.2 Baso # (Auto) 0.1 Nucleated RBC % (a uto) 0 Nucleated RBCs # 0.0 Sodium Potassium Chloride Carbon Dioxide Anion Gap BUN Creatinine GFR Calculation Glucose Calculated Osmolal ity Calcium Phosphorus 2.9 Magnesium Total Bilirubin AST ALT Alkaline Phosphata se Total Protein Albumin Globulin Procalcitonin 0.16 12/31/19 02:50 WBC RBC Hgb Hct MCV MCH MCHC RDW Plt Count MPV Neut % (Auto) Lymph % (Auto) [place] % (Auto) Eos % (Auto) Baso % (Auto) Neut # (Auto) Lymph # (Auto) [place] # (Auto) Eos # (Auto) Baso # (Auto) Nucleated RBC % (a uto) Nucleated RBCs # Sodium 139 Potassium 4.5 Chloride 106 Carbon Dioxide 23 Anion Gap 14.5 BUN 23 Creatinine 1.3 H GFR Calculation 55.9 L Glucose 100 Calculated Osmolal ity 285 Calcium 8.5 Phosphorus Magnesium 2.0 Total Bilirubin 0.5 AST 19 ALT 24 Alkaline Phosphata se 78 Total Protein 5.7 L Albumin 3.3 L Globulin 2.4 Procalcitonin Vitals: Last Vital Signs Temp 98.0 F 12/31/19 11:36 Pulse 58 L 12/31/19 11:36 Resp 18 12/31/19 11:36 BP 130/72 12/31/19 11:36 Pulse Ox 98 12/31/19 11:36 Discharge Plan Discharge Patient Disposition: Home, Self-Care Condition: Stable Prescriptions: New ciprofloxacin HCl 500 mg tablet 500 mg PO BID 7 Days Qty: 14 RF: 0 Flagyl 500 mg tablet 500 mg PO Q8H 7 Days Qty: 21 RF: 0 Continued temazepam 15 mg capsule 15 mg PO DAILY RF: 0 allopurinol 300 mg tablet 300 mg PO DAILY RF: 0 Held lisinopril-hydrochlorothiazide 20-25 mg tablet 1 tab PO DAILY RF: 0 Hold Instructions: Resume on 01/07/20. HOLD UNTIL SEEN BY PRIMARY CARE Discontinued Aleve 220 mg Tablet 220 mg PO BID PRN (Reason: Pain) RF: 0 Discharge Orders: Discharge Order (Routine); Ordered 12/31/19 Ordered By: Marvel Nichols Referrals: Rogelio Billings MD [Physician] - (Return to surgery office in 7 days) Cr Hutchinson MD [Physician] - (Please make an appointment to have the p atient see Dr. Hutchinson first available for left renal mass evaluation.) Ayo Miles DO [Primary Care Provider] - Discharge Diet: Advance as tolerated Patient Instructions: Appendicitis (GEN) Activity Restrictions/Additional Instructions: 1. Patient can shower after 48 hours from surgery 2. Remove Dermabond 7 to 10 days after surgery, if there is a secondary dressing can take down after 48 hours. 3. Up and walking as tolerated 4. Do lift more than 5 pounds first 2 weeks after surgery and not more than 25 pounds 6 to 8 weeks after surgery. 5. Do not operate heavy machinery or drive while using pain medications. 6.Contact the office or return to the ER for worsening nausea vomiting fevers or chills, or noticing any redness around incision sites or discharge. Discharge Attestations Time Spent in Discharge Care*: less than 30 min Quality Metrics Clinical Quality Measures During this hospital stay, did patient experience: None Coding Level of Care Code Acute Wrapper Hand for [facility] Fwd Diagnoses Acute appendicitis K35.80 Acute appendicitis type: unspecified acute appendicitis type Vasovagal syncope R55 Left renal mass N28.89
[2019-12-31 13:49] VITALS: BP 130/72; PULSE 58; RESP 18; TEMP 36.7; O2SAT 98
== END 2019-12-31 13:45 | disposition home or self-care (01) | DRG 854 ==
LOC: ER 13:02 → ICU 13:31 → MEDSURG 12-29 11:56
PROVIDERS: Nurse Practitioner Family; Surgery; Admitting Provider Student in an Organized Health Care Education/Training Program; PCP Family Medicine; Visit Provider Family Medicine
PROC: 0DTJ4ZZ Resection of Appendix, Percutaneous Endoscopic Approach (ICD-10-PCS; CPT 44970; 2019-12-28 16:00)
DX: A41.9 Sepsis, unspecified organism (principal); K35.80 Unspecified acute appendicitis; I12.9 Hypertensive chronic kidney disease with stage 1 through stage 4 chronic kidney disease, or unspecified chronic kidney disease; N18.9 Chronic kidney disease, unspecified; K21.9 Gastro-esophageal reflux disease without esophagitis; M10.9 Gout, unspecified
CPT/HCPCS: 12345; 36415; 71045; 74177; 80053; 81003; 83036; 83605; 83690; 83735; 84100; 84145; 84484; 85025; 88304; 93005; 93306; 96372; 96375; 99283; J0131; J0171; J0461; J0690; J1100; J1644; J1885; J2001; J2270; J2405; J2543; J2704; J2710; J3010; J3490; J7030; J7040; Q9967

== ENCOUNTER → 2020-01-16 08:32 | Outpatient (BNVA) | payer BC, SELFPAY | PROVIDERS: PCP Family Medicine; Visit Provider Urology | DX: N28.89 Other specified disorders of kidney and ureter (principal) | CPT/HCPCS: 81001 ==

== ENCOUNTER 2020-04-29 16:08 | Observation (INO) | payer BC, SELFPAY ==
[2020-04-29] VITALS (12 sets, daily range): BP systolic 87–130; BP diastolic 60–87; PULSE 64–89; RESP 16–45; TEMP 34.4–37; O2SAT 94–100; BMI 33.4
[2020-04-29] MEDS: sodium chloride 0.9% 1,000 ML 999 ML IV ×2 (16:19→17:31)
--- NOTE | 2020-04-29 16:19 | XR_ITS ---
WS: [id number] Portable AP upright chest, 04/29/2020 Clinical Data: sycnope Comparison: Portable chest, 12/28/2019. Findings: No nodules, masses or effusions are seen. The heart is normal. The pulmonary vascularity is not increased. No pneumonia or pneumothorax is seen. The aortic arch and descending aorta are tortuo us. XR/XR chest 1V portable [id number] Impression: Atherosclerosis.
--- NOTE | 2020-04-29 16:19 | CT_ITS ---
WS: [id number] CT scan of the head, 04/29/2020 Clinical Data: syncope Comparison: CT head, 11/23/2011. DLP: 885.[address] scans at [facility] use at least one of these dose optimization techniques: automat ed exposure control; mA and/or kV adjustment per patient size (includes targeted exams where dose is matched to clinical indication); or iterative reconstruction. Findings: The ventricular system is moderately dilated without shift. No recent infarct or hemorrhage is seen. There are no abnormal intracerebral masses. The cerebellum and brainstem are not remarkable. Bony windows of the skull and skull base show no fractures or erosions. The mastoid air cells, administrative intern al auditory canals, sella turcica, intraorbital contents, and paranasal sinuses are unremarkable. CT/CT head wo con* [id number] Impression: Negative CT scan of the head
--- NOTE | 2020-04-29 16:20 | ECG_ITS ---
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 Measurements Intervals [place] Rate: 73 P: 27 OK: 144 QRS: 29 QRSD: 105 T: 14 QT: 407 QTc: 449 Interpretive Statements SINUS RHYTHM POSSIBLE RIGHT VENTRICULAR CONDUCTION DELAY [RSR (QR) IN V1/V2] Compared to ECG 12/28/2019 12:56:46 No significant changes Electronically Signed On 04-29-2020 18:21:33 CDT by João Rhodes M.D. [email or web address]/[id number] f
--- NOTE | 2020-04-29 16:24 | ED_ITS ---
HPI - General Adult General: Chief complaint: Syncope Stated complaint: POSS HEAT STROKE Time Seen by Provider: 04/29/20 16:18 Source: patient and family Mode of arrival: ambulatory Limitations: no limitations History of Present Illness: HPI narrative: Patient is a 64-year-old gentleman with a history of hypertension who was brought into the emergency department today following 2 syncopal episodes. 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 On his way to the emergency department while in the car he had another episode of syncope. According to his he had some vomiting. The patient denies any chest pain or any pain. He is currently not dizzy. Patient was pale and diaphoretic on arrival. Patient states that he has had a heat stroke in the past and it was similar to this. Associated symptoms: Reports syncope; Deny dyspnea, headache(s), nausea, rash, palpitations or vomiting Review of Systems General: Reports: 10 or more systems reviewed and unremarkable except in HPI and below Const: Denies: fever(s), chills or body aches Eyes: Denies: change in vision or blurry vision ENMT: Denies: throat pain, enlarged tonsils, odynophagia, hoarseness, mouth pain or swelling of lips/tongue Card: Reports: syncope; Denies: palpitations, irregular heart rhythm, edema or swelling of feet/ankles Resp: Denies: dyspnea, productive cough or non-productive cough GI: Denies: abdominal pain, nausea or vomiting : Denies: flank pain, dysuria, urinary frequency, urinary urgency or urinary hesitancy Musc: Denies: neck pain, back pain or extremity swelling Skin/Breast: Denies: rash, pruritus or erythema Neuro: Reports: dizziness; Denies: headache(s), numbness in extremities or weakness in extremities Endo: Denies: polyuria, polydipsia or tired all the time PFSH ED PFSH: Medical History (Updated 04/29/20 @ 21:07 by Ai Jimenez MD, [facility] [place]) Appendicitis Arthritis of midfoot History of appendicitis (~12/2019) Hypertension Left renal mass Lisfranc fracture Plantar fasciitis, bilateral Renal mass Vasovagal syncope Surgical History (Updated 04/29/20 @ 20:35 by Nii Hendrix MD) H/O knee surgery History of laparoscopic appendectomy Family History Other Cancer Chronic kidney disease (CKD) Denies family history of Diabetes CAD (coronary artery disease) Clotting disorder Dementia Hyperlipidemia Psychiatric illness Suicide Anesthesia complication Bleeding disorder Family history of premature coronary artery disease Lung disease Hypertension Stroke Social History Smoking and tobacco status: never smoked Alcohol intake: never Lives independently: No Household members: spouse Marital status: Current occupational status: employed 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 Exam Const: COMMON NORMALS: no acute distress, average body habitus, patient oriented x3, no limitations, alert and well nourished GENERAL APPEARANCE: ill appearing NUTRITIONAL APPEARANCE: overweight OTHER: he is pale and diaphoretic HENMT: COMMON NORMALS: normocephalic, atraumatic and moist oral mucous membranes HEAD & SCALP: normocephalic and atraumatic Eye: COMMON NORMALS: Equal, round and reactive pupils present, EOMs intact bilaterally, conjunctivae normal and no scleral icterus CONJUNCTIVA: Yes conjunctivae normal PUPIL: Yes Equal, round and reactive pupils present Neck/C-Spine: COMMON NORMALS: full ROM, supple, no meningeal signs, no JVD and No carotid bruits Resp: COMMON NORMALS: normal respiratory effort, No retractions, No use of accessory muscles, clear to auscultation bilaterally and percussion normal AUSCULTATION: clear to auscultation bilaterally PERCUSSION: percussion normal Cardio: COMMON NORMALS: no JVD, regular rate, regular rhythm, S1 normal heart sound present, S2 normal heart sound present, No gallops present (Cardio), No clicks present (Cardio), No murmurs present (Cardio), No rub (Cardio) and Peripheral pulses 2+ throughout RATE: regular rate RHYTHM: regular rhythm HEART SOUNDS: S1 normal heart sound present and S2 normal heart sound present PERIPHERAL PULSES: Peripheral pulses 2+ throughout GI: COMMON NORMALS: Normal to inspection, nondistended, normoactive bowel sounds present, Soft to palpation, non-tender, No hepatosplenomegaly present, no masses and no bruits PALPATION: Yes Soft to palpation and Yes No hepatosplenomegaly present Extremity: COMMON NORMALS: normal to inspection, full ROM, capillary refill normal, no calf tenderness and no pedal edema Neuro: COMMON NORMALS: patient oriented x3 SENSORIUM/ORIENTATION: Yes alert MENINGEAL SIGNS: Yes no meningeal signs Skin: COMMON NORMALS: no rashes or lesions noted, no wounds, turgor normal, no jaundice, no petechiae and no mottling GENERAL SKIN EXAM: no rashes or lesions noted, turgor normal and pallor Course Reevaluation(s): Reevaluation #1: Patient had an episode of diaphoresis and pre-syncope. Heart rate dropped into the 30's. This lasted about 3 minutes. Heart rate then returned to the 70's and he felt better. He is still hypotensive. Discussed his initial labs with him - creatinine elevated from his baseline, 2.5 today. He said last week it was 1.3. BUN also elevated. Baseline troponin mildly elevated. Mild lactic acidosis. Serum osmolality is elevated at 301. Advised that at the minimum he will benefit from overnight hospital admission but will wait for a 2 hour troponin. Patient and his voiced understanding and all questions answered. Time: 17:36 Consultations: Consultation #1: Discussed the patient with Dr. Hendrix, hospitalist. He kindly accepted the patient to his service. Time: 20:20 Vital Signs: Vital signs: Vital Signs Temperature 94.0 F L 04/29/20 16:11 Pulse Rate 88 04/29/20 20:45 Respiratory Rate 16 04/29/20 20:45 Blood Pressure 123/87 04/29/20 20:45 Pulse Oximetry 96 04/29/20 20:45 MDM - General Adult MDM Narrative: Medical decision making narrative: 64-year-old gentleman with 2 syncopal episodes today. He was hypotensive in the emergency department and also has acute renal failure. He recently had a nephrectomy and creatinine last week was 1.3. His BP responded to fluid resuscitation. He is therefore admitted to the hospital for further evaluation and management. Medical Records: Attestation: I reviewed the patient's medical records. Lab Data: Attestation: I reviewed the patient's lab results. Labs: Lab Results 04/29/20 04/29/20 04/29/20 Range/Units 16:14 16:14 16:14 WBC 12.3 H (4.0-10.0) 10^3/ uL RBC 5.04 (4.1-5.3) 10^6/u L Hgb 15.8 (11.7-16.6) g/dL Hct 46.5 (42.0-52.0) % MCV 92.3 (80-94) fL MCH 31.3 (28.0-34.0) pg MCHC 34.0 (30.0-36.0) g/dL RDW 12.7 (12.1-15.1) % Plt Count 384 (130-400) 10^3/c mm MPV 9.5 (7.4-10.4) fL Neut % (Auto) 71.3 % Lymph % (Auto) 20.3 % [place] % (Auto) 7.4 % Eos % (Auto) 0.2 % Baso % (Auto) 0.5 % Neut # (Auto) 8.78 H (1.8-7.7) 10^3/u L Lymph # (Auto) 2.5 (0.8-4.8) 10^3/u L [place] # (Auto) 0.9 (0.2-0.9) 10^3/u L Eos # (Auto) 0.0 (0.0-0.8) 10^3/u L Baso # (Auto) 0.1 (0.0-0.1) 10^3/u L Nucleated RBC % (a uto) 0 % Nucleated RBCs # 0.0 /100WBC Sodium 140 (136-145) mmol/L Potassium 4.6 (3.5-5.1) mmol/L Chloride 102 (98-107) mmol/L Carbon Dioxide 17 L (22-29) mmol/L Anion Gap 25.6 H (5-19) BUN 32 H (8-23) mg/dL Creatinine 2.5 H (0.7-1.2) mg/dL GFR Calculation 26.3 L (90-130) mL/min Glucose 181 H (65-115) mg/dL Calculated Osmolal ity 301 H (285-295) mOsm/k g Lactate 2.9 H (0.5-2.2) mmol/L Calcium 10.5 (8.5-10.5) mg/dL Total Bilirubin 0.7 (0.15-1.2) mg/dL AST 24 (0-40) U/L ALT 27 (0-41) U/L Alkaline Phosphata se 116 (40-130) IU/L Creatine Kinase 215 (39-308) U/L Troponin T Baselin e (0-15) ng/L Troponin T Hi Sens 6Hr (0-15) ng/L Troponin T Hi Sens 6Hr Delta (0-12) ng/L C-Reactive Protein 3.4 (0.0-4.9) mg/L Total Protein 7.6 (6.6-8.7) g/dL Albumin 5.2 (3.5-5.2) g/dL Globulin 2.4 (1.3-4.6) g/dL 04/29/20 04/29/20 Range/Units 16:14 19:13 WBC (4.0-10.0) 10^3/ uL RBC (4.1-5.3) 10^6/u L Hgb (11.7-16.6) g/dL Hct (42.0-52.0) % MCV (80-94) fL MCH (28.0-34.0) pg MCHC (30.0-36.0) g/dL RDW (12.1-15.1) % Plt Count (130-400) 10^3/c mm MPV (7.4-10.4) fL Neut % (Auto) % Lymph % (Auto) % [place] % (Auto) % Eos % (Auto) % Baso % (Auto) % Neut # (Auto) (1.8-7.7) 10^3/u L Lymph # (Auto) (0.8-4.8) 10^3/u L [place] # (Auto) (0.2-0.9) 10^3/u L Eos # (Auto) (0.0-0.8) 10^3/u L Baso # (Auto) (0.0-0.1) 10^3/u L Nucleated RBC % (a uto) % Nucleated RBCs # /100WBC Sodium (136-145) mmol/L Potassium (3.5-5.1) mmol/L Chloride (98-107) mmol/L Carbon Dioxide (22-29) mmol/L Anion Gap (5-19) BUN (8-23) mg/dL Creatinine (0.7-1.2) mg/dL GFR Calculation (90-130) mL/min Glucose (65-115) mg/dL Calculated Osmolal ity (285-295) mOsm/k g Lactate (0.5-2.2) mmol/L Calcium (8.5-10.5) mg/dL Total Bilirubin (0.15-1.2) mg/dL AST (0-40) U/L ALT (0-41) U/L Alkaline Phosphata se (40-130) IU/L Creatine Kinase (39-308) U/L Troponin T Baselin e 16 H (0-15) ng/L Troponin T Hi Sens 6Hr 10.45 (0-15) ng/L Troponin T Hi Sens 6Hr Delta -5.55 L (0-12) ng/L C-Reactive Protein (0.0-4.9) mg/L Total Protein (6.6-8.7) g/dL Albumin (3.5-5.2) g/dL Globulin (1.3-4.6) g/dL Imaging Data^: CXR: Attestation: I personally reviewed and interpreted this imaging study as follows: Radiologist's impression: [address] [address] XRay Report Signed Patient: Sandro Shine #: [id number] : 8Acct#:[id number] Age/Sex: 64 / MADM Date: 04/29/20 Loc: ERRoom/Bed: Attending Dr: Ordering Provider/Ordering MD: Ai Jimenez MD, [facility] [place] Date of Service: 04/29/20 Procedure(s): XR chest 1V portable [id number] Accession Number(s): [id number] Report Number: [id number] WS: [id number] Portable AP upright chest, 04/29/2020 Clinical Data: sycnope Comparison: Portable chest, 12/28/2019. Findings: No nodules, masses or effusions are seen. The heart is normal. The pulmonary vascularity is not increased. No pneumonia or pneumothorax is seen. The aortic arch and descending aorta are tortuous. XR/XR chest 1V portable [id number] Impression: Atherosclerosis. Dictated By:Cary Swenson MD Signed By:Cary Swenson MDSigned Date/Time:04/29/20 1632 DD/ 163 CT Head: Attestation: I personally reviewed and interpreted this imaging study as follows: Radiologist's impression: [facility] [address] [place] [address] CT Scan Report Signed Patient: Sandro Shine #: [id number] : 8Acct#:[id number] Age/Sex: 64 / MADM Date: 04/29/20 Loc: ERRoom/Bed: Attending Dr: Ordering Provider/Ordering MD: Ai Jimenez MD, [facility] [place] Date of Service: 04/29/20 Procedure(s): CT head wo con* [id number] Accession Number(s): [id number] Report Number: [id number] WS: [id number] CT scan of the head, 04/29/2020 Clinical Data: syncope Comparison: CT head, 11/23/2011. DLP: 885.[address] scans at [facility] use at least one of these dose optimization techniques: automated exposure control; mA and/or kV adjustment per patient size (includes targeted exams where dose is matched to clinical indication); or iterative reconstruction. Findings: The ventricular system is moderately dilated without shift. No recent infarct or hemorrhage is seen. There are no abnormal intracerebral masses. The cerebellum and brainstem are not remarkable. Bony windows of the skull and skull base show no fractures or erosions. The mastoid air cells, internal auditory canals, sella turcica, intraorbital contents, and paranasal sinuses are unremarkable. CT/CT head wo con* [id number] Impression: Negative CT scan of the head Dictated By:Cary Swenson MD Signed By:Cary Swenson MDSigned Date/Time:04/29/20 1703 DD/ 1657 EKG Data^: EKG 1: Attestation: I personally reviewed and interpreted this EKG as follows: EKG interpretation date: 04/29/20 EKG interpretation time: 16:12 Prior EKG tracings: available for review Interpretation: Sinus rhythm. Heart rate 73 bpm. Right ventricular conduction delay. No ST changes. Computer generated interpretation: Chest X-Ray 04/29/20 16:19 Impression: Atherosclerosis. Head CT 04/29/20 16:19 Impression: Negative CT scan of the head EKG 2: Attestation: I personally reviewed and interpreted this EKG as follows: EKG interpretation date: 04/29/20 EKG interpretation time: 19:24 Prior EKG tracings: available for review Interpretation: Sinus rhythm. Heart rate 76 bpm. Right ventricular conduction delay. No ST changes. Unchanged from prior EKG Computer generated interpretation: Chest X-Ray 04/29/20 16:19 Impression: Atherosclerosis. 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
[2020-04-29 16:34] LABS: Basophils # 0.1 10^3/uL (0.0-0.1); Basophils % 0.5 %; Eosinophils % 0.2 %; Hematocrit 46.5 % (42.0-52.0); Hemoglobin 15.8 g/dL (11.7-16.6); Lymphocytes # 2.5 10^3/uL (0.8-4.8); Lymphocytes % 20.3 %; Mean Corpuscular Hemoglobin 31.3 pg (28.0-34.0); Mean Corpuscular Volume 92.3 fL (80-94); Mean Platelet Volume 9.5 fL (7.4-10.4); Monocytes # 0.9 10^3/uL (0.2-0.9); Monocytes % 7.4 %; Neutrophils # 8.78 10^3/uL (1.8-7.7); Neutrophils % 71.3 %; Nucleated Red Blood Cells % 0 %; Platelet Count 384 10^3/cmm (130-400); Red Blood Count 5.04 10^6/uL (4.1-5.3); Red Cell Distribution Width 12.7 % (12.1-15.1); White Blood Count 12.3 10^3/uL (4.0-10.0)
[2020-04-29 16:58] LABS: Lactate (Lactic Acid level) 2.9 mmol/L (0.5-2.2)
[2020-04-29 17:05] LABS: Alanine Aminotransferase 27 U/L (0-41); Albumin Level 5.2 g/dL (3.5-5.2); Alkaline Phosphatase 116 IU/L (40-130); Anion Gap 25.6 (5-19); Aspartate Amino Transferase 24 U/L (0-40); Blood Urea Nitrogen 32 mg/dL (8-23); C Reactive Protein 3.4 mg/L (0.0-4.9); Calcium 10.5 mg/dL (8.5-10.5); Carbon Dioxide 17 mmol/L (22-29); Chloride 102 mmol/L (98-107); Creatine Phosphokinase 215 U/L (39-308); Globulin 2.4 g/dL (1.3-4.6); Glomerular Filtration Rate 26.3 mL/min (90-130); Glucose 181 mg/dL (65-115); Osmolality Calculated 301 mOsm/kg (285-295); Potassium 4.6 mmol/L (3.5-5.1); Sodium 140 mmol/L (136-145); Total Bilirubin 0.7 mg/dL (0.15-1.2); Total Protein 7.6 g/dL (6.6-8.7); Troponin(5th) Baseline 16 ng/L (0-15)
[2020-04-29] MEDS: ondansetron 2 mg/ML SDV 2 mL 4 MG IVP (17:31)
--- NOTE | 2020-04-29 18:20 | ECG_ITS ---
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 Measurements Intervals [place] Rate: 76 P: 27 AL: 147 QRS: 9 QRSD: 103 T: 18 QT: 406 QTc: 458 Interpretive Statements SINUS RHYTHM LOW QRS VOLTAGE IN PRECORDIAL LEADS [QRS DEFLECTION < 1.0 mV IN CHEST LEADS] POSSIBLE RIGHT VENTRICULAR CONDUCTION DELAY [RSR (QR) IN V1/V2] Compared to ECG 04/29/2020 16:12:07 Low QRS voltage now present Electronically Signed On 04-30-2020 20:36:05 CDT by Teena Dolan M.D. [id number]
[2020-04-29 19:50] LABS: Troponin 5 6HR 10.45 ng/L (0-15)
[2020-04-29 19:55] LABS: Troponin 5 6HR Delta -5.55 ng/L (0-12)
[2020-04-29] MEDS: sodium chloride 0.9% 1,000 ML 150 ML IV (20:00)
--- NOTE | 2020-04-29 20:25 | PM.HP ---
Providers/Chief Complaint Primary Care Provider: Ayo Miles DO Chief Complaint: POSS HEAT STROKE History of Present Illness Sandro Shine is a 64 year old male who carries history of palpitations,, hypertension, recurrent syncopes in the past, chronically his heart rate stays in 50s to 60s, on previous admission he had one episode of bradycardia(after getting morphine) and asystole, needed chest compressions for few minutes with good return of spontaneous circulation, he never lost pulse, after resuscitation for B. He was in junctional rhythm, preserved ejection fraction, no aortic stenosis, normal stress test 2010 came in today after experiencing syncopal events. 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 Enroute to the hospital, his mentation was fluctuant in the car, on arrival in the ER he was awake, alert, by the time I saw him he was coherent without any active complaints. He was status post 1.5 L normal saline fluid resuscitation, patient is denying chest pain, palpitations, seizure-like activities, diarrhea, endorses one episode of emesis. At the time my evaluation blood pressure 123/87, pulse 88, respiratory rate 16, afebrile, saturating well on room air, he looks suntanned and dehydrated. EKG shows S1Q3T3 T3, right bundle branch block pattern no ischemic or infarctive change On previous admission there was incidental finding of renal mass and he was asked to follow-up with Dr. Hutchinson for concern of renal malignancy. CT abdomen revealed 3.5 cm exophytic left renal mass suspicious for neoplastic process. Status post laparoscopic left nephrectomy, 75% of left renal tissue has been removed. No metastases. Review of Systems Const: Reports: fatigue and malaise; Denies: fever(s), chills or body aches Eyes: Denies: change in vision ENMT: Denies: throat pain Card: Reports: syncope; Denies: chest pain, palpitations, swelling of feet/ankles or dyspnea on exertion Resp: Denies: dyspnea GI: Denies: abdominal pain : Denies: flank pain Musc: Denies: neck pain Skin/Breast: Reports: rash and new lesions (Suntanned, laparoscopic rash umbilical) Neuro: Denies: headache(s) Psych: Denies: anxiety Endo: Denies: polyuria Jaya/Lymph: Denies: easy bruising All/Imm: Denies: urticaria Medications/Allergies Home Medications Medication Instructions Recorded Confirmed Last Taken Type lisinopril 20 1 tab PO DAILY 11/19/19 01/16/20 12/28/19 History mg-hydrochlorothiazide 25 mg tablet allopurinol 300 mg PO DAILY 12/28/19 01/16/20 12/28/19 History temazepam 15 mg capsule 15 mg PO DAILY PRN 01/13/20 01/16/20 Unknown History aspirin 81 mg tablet,delayed 81 mg PO DAILY 01/16/20 01/16/20 Unknown History release cholecalciferol (vitamin D3) 25 25 mcg PO DAILY 01/16/20 01/16/20 Unknown History mcg (1,000 unit) capsule krill oil 500 mg capsule mg PO 01/16/20 01/16/20 Unknown History prednisone 20 mg tablet 20 mg PO PRN tab 01/16/20 01/16/20 Unknown History tramadol 50 mg tablet 50 mg PO PRN tab 01/16/20 01/16/20 Unknown History tramadol 50 mg tablet 50 mg PO Q4H PRN 7 Days #42 tab 03/18/20 Unknown Rx Allergies Allergy/AdvReac Type Severity Reaction Status Date / Time morphine Allergy Unknown Unknown Verified 01/16/20 08:26 PFSH Acute PFSH: Medical History Appendicitis Arthritis of midfoot History of appendicitis (~12/2019) Hypertension Left renal mass Lisfranc fracture Plantar fasciitis, bilateral Renal mass Vasovagal syncope Surgical History H/O knee surgery History of laparoscopic appendectomy History of nephrectomy, left Laparoscopic nephrectomy Family History Other Cancer Chronic kidney disease (CKD) Denies family history of Diabetes CAD (coronary artery disease) Clotting disorder Dementia Hyperlipidemia Psychiatric illness Suicide Anesthesia complication Bleeding disorder Family history of premature coronary artery disease Lung disease Hypertension Stroke Social History (Updated 04/29/20 @ 21:09 by Nii Hendrix MD) Smoking and tobacco status: never smoked Alcohol intake: never Lives independently: No Household members: spouse Marital status: Current occupational status: retired 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, 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 Vitals/I&O/Wt Last Vital Signs Temp 94.0 F L 04/29/20 16:11 Pulse 75 04/29/20 18:45 Resp 39 H 04/29/20 18:45 BP 113/77 04/29/20 18:45 Pulse Ox 96 04/29/20 18:45 04/29/20 04/29/20 04/29/20 06:59 14:59 22:59 Intake Total 1999 Balance 1999 Weight last 48 hrs Weight 99.79 kg Physical Exam Narrative: EXAM NARRATIVE: This is a pleasant middle-age male Dehydrated, suntanned EOMI, PERRLA Coherent awake alert oriented x3 GCS 15 NIH 0 S1, S2 sinus rhythm Hemodynamically stable Abdomen soft nondistended bowel sound present Laparoscopic scar barbour noted No neurological deficit No acute respiratory distress Lower extremity no edema gangrene or ulcer Data : 04/29/20 16:14 04/29/20 16:14 A&P Assessment and plan (1) Syncope and collapse: Status: Acute (2) Acute renal failure superimposed on stage 3a chronic kidney disease: Status: Acute (3) Acute dehydration: Status: Acute (4) Dehydration: Status: Acute Additional A&P Information Recurrent syncopal events Head bradycardia, asystole on previous admission, today patient was working outside, did not drink enough fluid, recently had nephrectomy as well, suntanned, dehydrated No active chest pain EKG does not show ischemic or infarctive changes however S1Q3T3, incomplete right bundle branch block pattern, We will check D-dimer, TSH, Admit to telemetry room No AV amairani blocking agents, currently hemodynamically stable, continue fluid resuscitation, check orthostatic vitals, by the time I saw her he was getting second bolus of normal saline Considering recurrence of syncopal events he will need Holter monitor, previous stress test unremarkable Previous echo did not show any sign of hypertrophic cardiomyopathy, aortic stenosis or valvular abnormality, I would not repeat echo as it was done 4 months ago Acute on chronic kidney disease stage IIIa Recently had laparoscopic nephrectomy for left renal mass Baseline creatinine seems to be around 1.3 current creatinine 2.5 Anticipating improvement with fluid resuscitation Hold lisinopril and hydrochlorothiazide Lactic acidemia secondary to dehydration No signs of sepsis, No active chest pain No signs of seizure Check prolactin level Full code Cardiac diet DVT prophylaxis Heparin Attestations Medical Necessity Statement*: Anticipating discharge in less than 48 hours continued IV fluid restriction for dehydration induced syncopal event, overnight monitoring on telemetry floor Time Spent in Patient Care: (>than 50% of time spent in counselling and/or direct pt care on unit). 40 minutes Coding Level of Care Code Acute Laundry Aid for Chg Fwd Diagnoses Syncope and collapse R55 Acute renal failure superimposed on stage 3a chronic kidney disease N17.9; N18.31 Acute dehydration E86.0 Dehydration E86.0
--- NOTE | 2020-04-29 22:20 | ECG_ITS ---
[facility] Test Date: 2020-04-30 Pat Name: Sandro Shine Department: Room: 252 Gender: Male Rn Family Practice: JILLIAN : 1955 Requested By: Ai Jimenez I Order Number: [id number] Ant MD: Teena Dolan M.D. Measurements Intervals Bee Rate: 85 P: 38 DE: 132 QRS: 18 QRSD: 105 T: 5 QT: 371 QTc: 442 Interpretive Statements SINUS RHYTHM POSSIBLE RIGHT VENTRICULAR CONDUCTION DELAY [RSR (QR) IN V1/V2] Compared to ECG 04/29/2020 19:24:37 No significant changes Electronically Signed On 04-30-2020 20:36:23 CDT by Teena Dolan M.D. [id number]
[2020-04-29] MEDS: heparin 5,000 unit/mL INJ 1 mL 5000 UNIT SUBCUT (22:28)
[2020-04-29 22:29] LABS: Thyroid Stimulating Hormone 1.36 uIU/mL (0.27-4.20)
[2020-04-29] MEDS: sodium chloride 0.9% 1,000 ML 75 ML IV (22:29)
[2020-04-29 22:31] LABS: D Dimer <= 0.27 ug/mIFEU (0-0.59)
[2020-04-29] MEDS: acetaminophen 325 mg Tablet 650 MG PO (23:31)
[2020-04-30] VITALS (9 sets, daily range): BP systolic 107–162; BP diastolic 65–86; PULSE 57–87; RESP 16–17; TEMP 36.6–36.8; O2SAT 94–98
[2020-04-30 05:32] LABS: Basophils % 0.3 %; Eosinophils % 0.3 %; Hematocrit 38.6 % (42.0-52.0); Hemoglobin 12.8 g/dL (11.7-16.6); Lymphocytes # 1.7 10^3/uL (0.8-4.8); Lymphocytes % 18.3 %; Mean Corpuscular HGB Conc 33.2 g/dL (30.0-36.0); Mean Corpuscular Hemoglobin 31.5 pg (28.0-34.0); Mean Corpuscular Volume 95.1 fL (80-94); Mean Platelet Volume 9.9 fL (7.4-10.4); Monocytes % 11.1 %; Neutrophils % 69.8 %; Nucleated Red Blood Cells % 0 %; Platelet Count 300 10^3/cmm (130-400); Red Blood Count 4.06 10^6/uL (4.1-5.3); Red Cell Distribution Width 12.6 % (12.1-15.1)
[2020-04-30 06:03] LABS: Blood Urea Nitrogen 33 mg/dL (8-23); Carbon Dioxide 22 mmol/L (22-29); Chloride 104 mmol/L (98-107); Glucose 104 mg/dL (65-115); Osmolality Calculated 292 mOsm/kg (285-295); Sodium 137 mmol/L (136-145)
[2020-04-30 06:13] LABS: Anion Gap 15.5 (5-19); Potassium 4.5 mmol/L (3.5-5.1)
--- NOTE | 2020-04-30 08:44 | USCV_ITS ---
Sandro Shine Age: 64 Gender: M : 1955 Exam Date: 04/30/2020 09:49 Ordering Phys: Marvel Nichols MD Technologist: Hiren Copeland [place] [facility] [place]AT [place] Risk Factors: Previous Vascular Surgery: Right Brachial BP: / Left Brachial BP: / Right Left Velocity (cm/s) Spectral Plaque Velocity (cm/s) Spectral Plaque Syst/Diast Broadening Syst/Diast Broadening 98.10/ 18.70 Prox CCA 76.20 / 9.20 84.90/ 26.50 Mid CCA 85.40 / 19.70 73.90/ 18.70 Distal CCA 67.00 / 14.50 70.45/ 22.40 Prox ICA 84.20 / 22.00 85.40/ 23.50 Mid ICA 107.20/ 25.00 75.80/ 19.20 Distal ICA 75.10 / 23.00 115.90 ECA 116.20 0.87 ICA/CCA 1.25 Antegrade Vertebral Antegrade 40.00/ 12.00 cm/s 38.10/ 2.00 cm/s Tri Subclavian Tri 84.30 94.00 CONCLUSIONS Right ICA stenosis <50%. Left ICA stenosis <50%. Normal antegrade Doppler flow noted in the right vertebral artery. Normal antegrade Doppler flow noted in the left vertebral artery. Juan Elias MD (Electronically Signed) Final Date: 30 April 2020 16:31 S
--- NOTE | 2020-04-30 09:24 | PC.CHAP ---
Pastoral Care Encounter/Spiritual Assessment Type of Contact [] Declined breast puller visit [] Patient/Family/Request visit [] Outpatient visit [] Follow-up visit [] Physician referral [] Code/Alert [] Routine visit [] Staff referral [] Actively dying [] Patient sleeping [] Family support [] [] Out of room [] Palliative care [] [] Receiving care in room [] Pre-surgical visit [] Trauma [] Long length of stay [] ICU visit [] Other: Relational/Emotional Strength [x] Patient feels connected with others/family/visitors/staff [] Distress [] Loneliness/isolation [] Abandonment Spirituality of Patient [x] Person of Cynthia [x] Attends Muslim of their Cynthia [x] Believes in Prayer [x] Reads Bible or Spiritism materials [] There are Spiritual issues to be addressed Account Development Specialist Interventions [x] Prayer [] Active listening [] Non-anxious presence [] Spiritual/emotional support [] Crisis/trauma care [] Spiritual counseling [] Bereavement support [] Provided bereavement packet [] Provided Bible/devotional materials [] Provided toy/stuffed animal, coloring book to patient or family member [] Provided Communion [] Anointing/Cutler [] Salvation [x] Completed spiritual assessment [] Other: Impact on Illness or Injury [] Angry [] Fearful [] Anxious [] Often cries [] Exhaustion [] Unable to work [] Unable to attend gnosticism [] Unable to walk/stand [] Unable to read [] Unable to drive [] Unable to eat/drink [] Unable to sleep [] Unable to be with family [] Patient intubated [] Other: Summary Time spent with patient
[2020-04-30] MEDS: allopurinol 300 mg Tablet PO (10:11)
[2020-04-30] MEDS: aspirin 81 mg EC Tablet PO (10:12)
[2020-04-30] MEDS: heparin 5,000 unit/mL INJ 1 mL 5000 UNIT SUBCUT (10:13)
[2020-04-30] MEDS: sodium chloride 0.9% 1,000 ML 75 ML IV (11:13)
--- NOTE | 2020-04-30 12:41 | P.DS_ITS ---
Discharge Providers Date of Admission: 04/29/20 20:28 Date of Discharge: April 30, 2020 Attending Provider at Admission: Nii Hendrix MD Attending Provider at Discharge: Marvel Nichols MD Primary Care Provider: Ayo Miles DO Diagnoses at Discharge Discharge Diagnosis (1) Syncope and collapse: Status: Acute (2) Acute renal failure superimposed on stage 3a chronic kidney disease: Status: Acute (3) Acute dehydration: Status: Acute (4) Dehydration: Status: Acute Reason for Visit Reason for Visit: [facility] STRO[facility] Hospital Course Discharge Summary: This is a 64-year-old male with a past medical history of vasovagal syncope, sinus bradycardia, left renal cell carcinoma status post partial nephrectomy, recent history of acute appendicitis who presents [facility] due to syncopal event Patient has episodes of recurrent syncope, typically occurs when he becomes hot and sweaty after work, tells me that he does not hydrate well as he should, during his previous hospitalization he had episodes of vasovagal syncope, had a significant episode of vasovagal syncope with bradycardia, asystole and hypotension in the emergency room when he was admitted for his acute appendicitis, which resolved with chest compressions, he never lost a pulse, return of a junctional rhythm afterwards with PVCs, then to sinus bradycardia. He had a similar episode when in a colonoscopy 10 to 12 years ago. He had a normal cardiac stress test several years back. Echocardiogram on previous admission was within normal limits. He tells me that he was working out in the [place] this afternoon, was feeling hot and sweaty, no chest pain, no palpitations, no lightheadedness, no dizziness, no strokelike symptoms, no nausea, no vomiting, he got into his vehicle and turned AC on when he passed out. Family witnessed the event, no seizure-like episode, no slurring of speech, no strokelike symptoms. He tells me that he mentation was variable, and he was coming in and out of the syncopal episodes, and eventually he was back to baseline, no postictal confusion. In the emergency room blood pressure on arrival is 87/64, received several fluid boluses, EKG showed right ventricular conduction delay, no acute ST-T wave changes, troponins within normal limits, no acute telemetry events during his hospitalization, neurochecks within normal limits, alert oriented x3, neurologically intact. Head CT was negative for any acute findings. Echocardiogram back in December showed EF of 60%, no regional wall motion abnormalities. Blood work did show a creatinine of 2.5, which improved to 1.7 with fluids. Thus likely patients syncopal event was related to dehydration and vasovagal syncope. After discussion with cardiology decision was made to discharge patient on a 30-day event monitor, but he will likely will require a loop recorder if the event recorder at some point, if work-up is unremarkable. In addition I will have patient also follow-up with neurology within a month, for consideration of EEG and MRI. Patient was advised to drink plenty of electrolyte balance fluids such as Gatorade. Physical Exam Const: COMMON NORMALS: no acute distress and patient oriented x3 GENERAL APPEARANCE: cooperative and comfortable HENMT: COMMON NORMALS: normocephalic HEAD & SCALP: normocephalic Eye: COMMON NORMALS: Equal, round and reactive pupils present and EOMs intact bilaterally GENERAL EYE: appearance normal, both eyes and all related structures PUPIL: Yes Equal, round and reactive pupils present Neck/C-Spine: COMMON NORMALS: full ROM, no lymphadenopathy, no JVD and Thyroid normal THYROID: Thyroid normal Lymph: LYMPHATIC: no lymphadenopathy noted Resp: COMMON NORMALS: normal respiratory effort, No retractions, No use of accessory muscles and clear to auscultation bilaterally AUSCULTATION: clear to auscultation bilaterally Cardio: COMMON NORMALS: no JVD, regular rate, regular rhythm, S1 normal heart sound present, S2 normal heart sound present, No gallops present (Cardio), No clicks present (Cardio) and No murmurs present (Cardio) RATE: regular rate RHYTHM: regular rhythm HEART SOUNDS: S1 normal heart sound present and S2 normal heart sound present GI: COMMON NORMALS: Normal to inspection, nondistended, normoactive bowel sounds present, Soft to palpation, non-tender and No hepatosplenomegaly present PALPATION: Yes Soft to palpation and Yes No hepatosplenomegaly present Extremity: COMMON NORMALS: normal to inspection, full ROM and no pedal edema Neuro: COMMON NORMALS: patient oriented x3, CN's II-XII intact bilaterally, moves all extremities and no focal motor deficits Psych: COMMON NORMALS: mental status grossly normal, Normal thought process present and cooperative THOUGHT PROCESS: Normal thought process present Discharge Data Data Completed and Pending: Completed Studies During Hospitalization Category Date Time Status CT head wo con* [id number] Urgent Cat Scan 04/29/20 16:19 Completed XR chest 1V nadine ble [id number] Stat Exams 04/29/20 16:19 Completed Pending at discharge Category Date Time Status Urinalysis Stat Lab 04/29/20 16:19 Ordered CV carotid duplex BI* [id number] Routine Ultrasound 04/30/20 08:44 Taken Labs from last 24 hours 04/30/20 04/30/20 04/29/20 04:20 04:20 22:10 WBC 9.0 RBC 4.06 L Hgb 12.8 Hct 38.6 L MCV 95.1 H MCH 31.5 MCHC 33.2 RDW 12.6 Plt Count 300 MPV 9.9 Neut % (Auto) 69.8 Lymph % (Auto) 18.3 Gilchrist % (Auto) 11.1 Eos % (Auto) 0.3 Baso % (Auto) 0.3 Neut # (Auto) 6.30 Lymph # (Auto) 1.7 Gilchrist # (Auto) 1.0 H Eos # (Auto) 0.0 Baso # (Auto) 0.0 Nucleated RBC % (a uto) 0 Nucleated RBCs # 0.0 D-Dimer <= 0.27 Sodium 137 Potassium 4.5 Chloride 104 Carbon Dioxide 22 Anion Gap 15.5 BUN 33 H Creatinine 1.7 H GFR Calculation 41.0 L Glucose 104 Calculated Osmolal ity 292 Lactate Calcium 9.0 Total Bilirubin AST ALT Alkaline Phosphata se Creatine Kinase Troponin T Baselin e Troponin T Hi Sens 6Hr Troponin T Hi Sens 6Hr Delta C-Reactive Protein Total Protein Albumin Globulin TSH 04/29/20 04/29/20 04/29/20 19:13 19:13 16:14 WBC RBC Hgb Hct MCV MCH MCHC RDW Plt Count MPV Neut % (Auto) Lymph % (Auto) Gilchrist % (Auto) Eos % (Auto) Baso % (Auto) Neut # (Auto) Lymph # (Auto) Gilchrist # (Auto) Eos # (Auto) Baso # (Auto) Nucleated RBC % (a uto) Nucleated RBCs # D-Dimer Sodium Potassium Chloride Carbon Dioxide Anion Gap BUN Creatinine GFR Calculation Glucose Calculated Osmolal ity Lactate Calcium Total Bilirubin AST ALT Alkaline Phosphata se Creatine Kinase Troponin T Baselin e 16 H Troponin T Hi Sens 6Hr 10.45 Troponin T Hi Sens 6Hr Delta -5.55 L C-Reactive Protein Total Protein Albumin Globulin TSH 1.36 04/29/20 04/29/20 04/29/20 16:14 16:14 16:14 WBC 12.3 H RBC 5.04 Hgb 15.8 Hct 46.5 MCV 92.3 MCH 31.3 MCHC 34.0 RDW 12.7 Plt Count 384 MPV 9.5 Neut % (Auto) 71.3 Lymph % (Auto) 20.3 Gilchrist % (Auto) 7.4 Eos % (Auto) 0.2 Baso % (Auto) 0.5 Neut # (Auto) 8.78 H Lymph # (Auto) 2.5 Gilchrist # (Auto) 0.9 Eos # (Auto) 0.0 Baso # (Auto) 0.1 Nucleated RBC % (a uto) 0 Nucleated RBCs # 0.0 D-Dimer Sodium 140 Potassium 4.6 Chloride 102 Carbon Dioxide 17 L Anion Gap 25.6 H BUN 32 H Creatinine 2.5 H GFR Calculation 26.3 L Glucose 181 H Calculated Osmolal ity 301 H Lactate 2.9 H Calcium 10.5 Total Bilirubin 0.7 AST 24 ALT 27 Alkaline Phosphata se 116 Creatine Kinase 215 Troponin T Baselin e Troponin T Hi Sens 6Hr Troponin T Hi Sens 6Hr Delta C-Reactive Protein 3.4 Total Protein 7.6 Albumin 5.2 Globulin 2.4 TSH Vitals: Last Vital Signs Temp 98.1 F 04/30/20 11:10 Pulse 61 04/30/20 11:10 Resp 16 04/30/20 11:10 BP 112/70 04/30/20 11:10 Pulse Ox 97 04/30/20 11:10 Discharge Plan Discharge Patient Disposition: Home Condition: Stable Prescriptions: Continued cholecalciferol (vitamin D3) 25 mcg (1,000 unit) capsule 25 mcg PO DAILY RF: 0 aspirin [Adult Low Dose Aspirin] 81 mg tablet,delayed release (DR/EC) 81 mg PO DAILY RF: 0 krill oil 500 mg capsule 1 PO RF: 0 prednisone 20 mg tablet 20 mg PO PRN (Reason: gout) RF: 0 temazepam 15 mg capsule 15 mg PO DAILY PRN (Reason: Sleep) RF: 0 allopurinol 300 mg tablet 300 mg PO DAILY RF: 0 Discontinued tramadol 50 mg tablet 50 mg PO PRN (Reason: pain) RF: 0 tramadol 50 mg tablet 50 mg PO Q4H PRN (Reason: pain) 7 Days Qty: 42 RF: 0 Discharge Orders: Discharge Order (Routine); Ordered 04/30/20 Ordered By: Marvel Nichols Other Ambulatory Orders: CA cardiac event monitor (Routine) Timeframe: 1 Day Facility: [facility] - Location: Cardiac Diagnostic Laboratory Ordered By: Marvel Nichols Referrals: Flaca Cuevas MD [Physician] - 1 month (Call on Sunday to make an appointment to be seen in a month.) Discharge Activity: Resume usual activity Patient Instructions: Syncope (GEN) Activity Restrictions/Additional Instructions: -If you pass out again, please come back to the emergency room -If you have strokelike symptoms please call 911 -If you have chest pain please come back to the emergency room -Please follow-up with Dr. Jimenes in 1 month -Please wear event monitor as prescribed -Please hydrate very well, drink plenty of electrolyte balance fluids such as Powerade or Gatorade throughout the days, especially when working outside Discharge Attestations Time Spent in Discharge Care*: less than 30 min Quality Metrics Clinical Quality Measures During this hospital stay, did patient experience: None Coding Level of Care Code Acute Laborer [place] for [place] Fwd Diagnoses Syncope and collapse R55 Acute renal failure superimposed on stage 3a chronic kidney disease N17.9; N18.31 Acute dehydration E86.0 Dehydration E86.0
--- NOTE | 2020-04-30 15:20 | PC.NURSE ---
IV DC'd cath intact bleeding controlled with 2x2's and coban. DC instructions given , to main entrance via wheelchair to private vehicle with zero difficulties
== END 2020-04-30 15:20 | disposition home or self-care (01) ==
LOC: ER 16:25 → MEDSURG 20:55
PROVIDERS: Family Medicine; Admitting Provider Internal Medicine; PCP Family Medicine; Visit Provider Family Medicine
DX: R55 Syncope and collapse (principal); N17.9 Acute kidney failure, unspecified; I12.9 Hypertensive chronic kidney disease with stage 1 through stage 4 chronic kidney disease, or unspecified chronic kidney disease; N18.31 Chronic kidney disease, stage 3a; E86.0 Dehydration
CPT/HCPCS: 12345; 36415; 70450; 71045; 80048; 80053; 82550; 83605; 84443; 84484; 85025; 85378; 86140; 90471; 90686; 93005; 93880; 96360; 96361; 96372; 96374; 96375; 99283; 99285; G0378; J1644; J2405; J7030

== ENCOUNTER 2020-08-20 13:19 | Outpatient (CLI) | payer OTHER, SELFPAY ==
--- NOTE | 2020-08-20 15:00 | CT_ITS ---
WS: [id number] CT ABDOMEN AND PELVIS NONCONTRAST HISTORY: K43.9 - Ventral hernia without obstruction or gangrene TECHNIQUE: Imaging performed through the abdomen and pelvis. Coronal and sagittal reformats are submi tted. All CT scans at [facility] use at least one of these dose optimization techniques: automated exposure control; mA and/or kV adjustment per patient size (includes targeted exams where d ose is matched to clinical indication); or iterative reconstruction. DLP: 1179.32 mGycm COMPARISON: 12/28/2019 Lower thorax: Lung bases are clear. Visualized heart is normal. No hiatal hernia. Liver: Normal size liver. No mass or bile duct dilatation. Gallbladder: Normal gallbladder. Pancreas: Normal size and attenuation. Normal pancreatic duct. No pancreatitis or mass. Spleen: Normal. Adrenal glands: Normal. No mass. Right kidney: Mild perinephric stranding. Subtle area of decreased echogenicity in the posterior RIGH T kidney measures 1.6 cm. Corresponds to a cyst seen on a prior CT. Cannot further evaluate without I V contrast. Left kidney: Postsurgical changes and partial nephrectomy involving the mid kidney. Interval removal of a solid tumor since the prior study. No recurrent mass on this unenhanced study. No obstruction. Aorta: Normal abdominal aorta, no aneurysm or atherosclerosis. No free fluid, intraperitoneal air or significant lymphadenopathy. GI tract: No GI tract obstruction. Ventral abdominal wall hernia. There is a loop of small bowel whic h extends into the hernia. There are 2 loops of small bowel which extend into the hernia. There are 2 adjacent partially divided hernia sacs. There is a loop of small bowel but no obstruction. At this t zo there is no incarceration or ischemic change. Prior appendectomy. Abdominal wall: Ventral abdominal wall hernia at the umbilical region. There are 2 separate hernia sa cs with small bowel extending into the hernia sacs. No obstruction. Supraumbilical hernia with a very small orifice containing omentum only. 001 Pelvis: Normal. Osseous structures: Unremarkable. CT/CT abdomen pelvis wo con [id number] IMPRESSION: 1. Ventral abdominal wall hernia at the umbilicus with 2 hernia sacs by a thin rim of soft tissue. No obstruction of the small bowel extending int o the hernia sacs. There is an additional supraumbilical hernia containing fat only. 2. Partial LEFT nephrectomy. 3. Prior appendectomy.
== END 2020-08-20 13:20 | disposition home or self-care (01) ==
LOC: RADWPI 13:20
PROVIDERS: PCP Family Medicine; Visit Provider Surgery
DX: K43.9 Ventral hernia without obstruction or gangrene (principal); Q42.8 Congenital absence, atresia and stenosis of other parts of large intestine; Z90.5 Acquired absence of kidney; K42.9 Umbilical hernia without obstruction or gangrene
CPT/HCPCS: 74176

== ENCOUNTER → 2020-09-10 08:19 | Outpatient (BNVA) | payer OTHER, SELFPAY | PROVIDERS: PCP Family Medicine; Visit Provider Surgery | DX: R10.9 Unspecified abdominal pain (principal) | CPT/HCPCS: 87635 ==

== ENCOUNTER 2020-09-15 08:24 | Day surgery (SDC) | payer OTHER, SELFPAY ==
[2020-09-14 15:53] VITALS: BMI 33.4
--- NOTE | 2020-09-15 08:58 | ANES.PREANE2 ---
Pre-Anesthetic Assessment Pre-Anesthetic Assessment: Height/Weight: Height 1.73 m Weight 99.79 kg Preop Diagnosis: Screening colonoscopy Proposed Procedure: Operation Date: 09/15/20 09:45 Proposed Procedures p Colonoscopy 54213 r10.9(Not Applicable) - Rogelio Billings MD Was Beta Vikash taken within 24 hours: Yes Social: Social History: No alcohol and No tobacco Exam: Pre-Anes Outpt Exam: alert, oriented x 3, clear to auscultation bilaterally and regular rate & rhythm Airway: Submandibular: WNL Cervical ROM: WNL MP: 2 Dentition: Full CV/HEM: CV/HEM: Arrythmia (PSVT) and HTN : : Chronic renal Insufficiency Anesthetic Plan: ASA status: 3 Anesthesia: MAC Risk of > 500 ml blood loss (7ml/kg in children): No PFSH Anesthesia PFSH: Medical History Appendicitis Arthritis of midfoot History of appendicitis (~12/2019) Hypertension Left renal mass Lisfranc fracture Plantar fasciitis, bilateral Renal mass Vasovagal syncope Surgical History H/O knee surgery History of laparoscopic appendectomy History of nephrectomy, left Laparoscopic nephrectomy Family History Other Cancer Chronic kidney disease (CKD) Denies family history of Diabetes CAD (coronary artery disease) Clotting disorder Dementia Hyperlipidemia Psychiatric illness Suicide Anesthesia complication Bleeding disorder Family history of premature coronary artery disease Lung disease Hypertension Stroke Social History Smoking and tobacco status: never smoked Alcohol intake: never Lives independently: No Household members: spouse Marital status: Current occupational status: retired 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
--- NOTE | 2020-09-15 09:04 | W.PM.OPSUD ---
Surgery/Procedure H&P Update DATE OF PROCEDURE: September 15, 2020 DATE H&P PERFORMED: 09/06/20 H&P UPDATE INFORMATION: I have reviewed H&P completed within last 30 days, I have examined patient prior to procedure and No changes to prior documentation PREOP DIAGNOSIS: Screening colonoscopy PRIMARY INDICATION FOR PROCEDURE: The same PLANNED PROCEDURE: Operation Date: 09/15/20 09:45 Proposed Procedures p Colonoscopy 05567 r10.9(Not Applicable) - Rogelio Billings MD
[2020-09-15 09:12] VITALS: BP 119/90; PULSE 72; RESP 18; TEMP 36.8; O2SAT 94
[2020-09-15] MEDS: sodium chloride 0.9% 1,000 ML 30 ML IV (09:26)
[2020-09-15 09:57] VITALS: BP 93/65; PULSE 70; RESP 16; TEMP 36.6; O2SAT 97
[2020-09-15 10:12] VITALS: BP 108/77; PULSE 60; RESP 16; TEMP 36.7; O2SAT 94
--- NOTE | 2020-09-15 14:50 | ANE.PACU2 ---
Inpatient post-anesthesia follow up: Airway intact: Yes Vital signs: Temperature 98.1 F Pulse Rate 60 Respiratory Rate 16 Blood Pressure 108/77 Pulse Oximetry 94 Oxygen Delivery Me thod Room Air Oxygen Flow Rate 6 Fraction of Inspir ed Oxygen Hydration adequate: Yes Nausea and vomiting: No Pain level: 1 Mental status: Baseline
== END 2020-09-15 10:40 | disposition home or self-care (01) ==
PROVIDERS: PCP Family Medicine; Visit Provider Surgery
PROC: 0DJD8ZZ Inspection of Lower Intestinal Tract, Via Natural or Artificial Opening Endoscopic (ICD-10-PCS; CPT 45378; principal; 2020-09-15 09:45)
DX: Z12.11 Encounter for screening for malignant neoplasm of colon (principal); K57.30 Diverticulosis of large intestine without perforation or abscess without bleeding; I10 Essential (primary) hypertension
CPT/HCPCS: 45378; 96360; J2704; J7030

== ENCOUNTER → 2021-01-18 10:11 | Day surgery (SDC) | payer OTHER, SELFPAY | PROVIDERS: PCP Family Medicine; Visit Provider Surgery | DX: Z01.818 Encounter for other preprocedural examination (principal) | CPT/HCPCS: 93005 ==

== ENCOUNTER → 2021-01-20 12:07 | Outpatient (BNVA) | payer OTHER, SELFPAY | PROVIDERS: PCP Family Medicine; Visit Provider Surgery | DX: K43.2 Incisional hernia without obstruction or gangrene (principal); Z20.822 Contact with and (suspected) exposure to COVID-19 | CPT/HCPCS: 87635 ==

== ENCOUNTER 2021-01-25 06:34 | Day surgery (SDC) | payer OTHER, SELFPAY ==
[2021-01-18 10:06] VITALS: BMI 32.6
--- NOTE | 2021-01-18 10:11 | ECG_ITS ---
[facility] Test Date: 2021-01-18 Pat Name: Navarro Shine Department: Room: Gender: Male Padder Cushion: : 1955 Requested By: Dani Arrieta Order Number: [id number] Ant MD: Teena Dolan M.D. Measurements Intervals [place] Rate: 46 P: 20 PA: 161 QRS: -9 QRSD: 109 T: 3 QT: 435 QTc: 384 Interpretive Statements SINUS BRADYCARDIA POSSIBLE RIGHT VENTRICULAR CONDUCTION DELAY [RSR (QR) IN V1/V2] MINIMAL VOLTAGE CRITERIA FOR LVH, CONSIDER NORMAL VARIANT [MEETS CRITERIA IN ONE OF: R(aVL), S(V1), R(V5), R(V5/V6)+S(V1)] WARNING: DATA QUALITY MAY AFFECT INTERPRETATION Compared to ECG 04/30/2020 01:29:15 Sinus rhythm no longer present Electronically Signed On 01-19-2021 0:36:58 CDT by Teena Dolan M.D. [id number]
--- NOTE | 2021-01-18 10:31 | P.ANESASSM_ITS ---
Pre-Anesthetic Assessment Pre-Anesthetic Assessment: Height/Weight: Height 1.73 m Weight 97.522 kg Preop Diagnosis: Screening colonoscopy Proposed Procedure: Operation Date: 01/25/21 09:35 Proposed Procedures p lap ventral incisional hernia repair w/ [place] 26192 K43.2(Not Applicable) - Rogelio Billings MD Was Beta Vikash taken within 24 hours: Yes Was Clonidine taken within 24 hours: N/A Social: Social History: No alcohol and No tobacco Exam: Pre-Anes Outpt Exam: alert, oriented x 3, clear to auscultation bilaterally and regular rate & rhythm Airway: Submandibular: WNL Cervical ROM: WNL MP: 2 Dentition: Full CV/HEM: CV/HEM: Arrythmia (PSVT) and HTN : : Chronic renal Insufficiency Metabolic: Metabolic: Morbid obesity Anesthetic Plan: ASA status: 3 Anesthesia: General Risk of > 500 ml blood loss (7ml/kg in children): No Other Pertinent Information: Patient says his heart has stopped during anesthesia, he describes extensive cardiac w/u without any abnormalilties other than PSVT and bradycardia. Functionally in good shape. PFSH Anesthesia PFSH: Medical History Appendicitis Arthritis of midfoot Diverticulosis Encounter for screening colonoscopy History of appendicitis (~12/2019) Hypertension Left renal mass Lisfranc fracture Plantar fasciitis, bilateral Renal mass Vasovagal syncope Surgical History H/O knee surgery History of laparoscopic appendectomy History of nephrectomy, left Laparoscopic nephrectomy Family History Other Cancer Chronic kidney disease (CKD) Denies family history of Diabetes CAD (coronary artery disease) Clotting disorder Dementia Hyperlipidemia Psychiatric illness Suicide Anesthesia complication Bleeding disorder Family history of premature coronary artery disease Lung disease Hypertension Stroke Social History Smoking and tobacco status: never smoked Alcohol intake: never Lives independently: No Household members: spouse Marital status: Current occupational status: retired 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
[2021-01-25] VITALS (16 sets, daily range): BP systolic 103–143; BP diastolic 69–94; PULSE 84–107; RESP 12–19; TEMP 36.5–36.8; O2SAT 93–98
[2021-01-25] MEDS: heparin 5,000 unit/mL INJ 1 mL 3000 UNIT SUBCUT (07:13)
[2021-01-25] MEDS: acetaminophen 1,000 MG/100 ML PIGGYBACK 400 MG IV (07:14)
[2021-01-25] MEDS: sodium chloride 0.9% 1,000 ML 30 ML IV (07:14)
[2021-01-25] MEDS: scopolamine 1.5 Patch 1 PATCH TRANSDERMA (07:17)
--- NOTE | 2021-01-25 08:14 | P.HP_ITS ---
Same Day Surgery H&P Indication for Procedure/HPI DATE OF PROCEDURE: January 25, 2021 CHIEF COMPLAINT/INDICATIONFOR SURGICAL PROCEDURE: I HAVE BULGE PREOP DIAGNOSIS: Ventral incisional hernia PLANNED PROCEDRUE: Operation Date: 01/25/21 08:00 Proposed Procedures p lap ventral incisional hernia repair w/ [place] 74864 K43.2(Not Applicable) - Rogelio Blilings MD Patient comes today after being cleared by cardiology service for surgery to repair his ventral incisional hernia. Denies any specific complaints apart from his symptomatic ventral incisional hernia that has been interfering with his daily life activities and quality of life. Apart from that no evidence of bowel obstruction. CT scan of the abdomen and pelvis done back in August 2020 showed 1. Ventral abdominal wall hernia at the umbilicus with 2 hernia sacs by a thin rim of soft tissue. No obstruction of the small bowel extending into the hernia sacs. There is an additional supraumbilical hernia containing fat only. 2. Partial LEFT nephrectomy. 3. Prior appendectomy. 01/25/2021 Patient comes today for elective laparoscopic ventral incisional hernia repair possible open with mesh placement. ROS All systems have been reviewed negative except as per the above or per problem l ist Medications/Allergies* Home Medications Medication Instructions Recorded Confirmed Type allopurinol 300 mg PO DAILY 12/28/19 01/25/21 History temazepam 15 mg capsule 15 mg PO DAILY PRN 01/13/20 01/25/21 History cholecalciferol (vitamin D3) 25 25 mcg PO DAILY 01/16/20 01/25/21 History mcg (1,000 unit) capsule lisinopril 10 mg tablet 10 mg PO DAILY tab 08/11/20 01/25/21 History aspirin 81 mg PO DAILY 09/14/20 01/25/21 History tramadol 50 mg PO DAILY 09/14/20 01/25/21 History glucos sul [id number]-C-Mn 1 cap PO DAILY 01/18/21 01/18/21 History [Glucosamine Chondroitin] Allergies/Adverse Reactions Allergy/AdvReac Type Severity Reaction Status Date / Time morphine Allergy Unknown Unknown Verified 01/25/21 08:22 Current Medications: Generic Name Dose Route Start Last Admin Trade Name Freq PRN Reason Stop Dose Admin Sodium Chloride 1,000 mls @ 30 mls/hr 01/25/21 06:45 01/25/21 07:14 Sodium Chloride 0.9% IV 01/26/21 06:44 30 mls/hr .Q24H ANGELIQUE Administration Pertinent History/Comorbid Conditions* Medical History (Updated 12/18/20 @ 09:09 by Flaca Cuevas MD) Appendicitis Arthritis of midfoot Diverticulosis Encounter for screening colonoscopy History of appendicitis (~12/2019) Hypertension Left renal mass Lisfranc fracture Plantar fasciitis, bilateral Renal mass Vasovagal syncope Surgical History (Updated 04/29/20 @ 21:08 by Nii Hendrix MD) H/O knee surgery History of laparoscopic appendectomy History of nephrectomy, left Laparoscopic nephrectomy Family History (Updated 11/19/19 @ 13:37 by Sariah Nevarez LPN) Chronic kidney disease (CKD) Cancer Denies family history of Diabetes CAD (coronary artery disease) Clotting disorder Dementia Hyperlipidemia Psychiatric illness Suicide Anesthesia complication Bleeding disorder Family history of premature coronary artery disease Lung disease Hypertension Stroke Social History Smoking and tobacco status: never smoked Alcohol intake: never Lives independently: No Household members: spouse Marital status: Current occupational status: retired 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 Recommendations Surgery/Procedure today (Laparoscopic ventral incisional hernia repair with mesh placement possible open) Coding Level of Care Code Acute Agricultural Inspector for [place]
--- NOTE | 2021-01-25 10:28 | PM.OP ---
Operative Report Date of procedure: January 25, 2021 Pre-op Diagnosis: Ventral incisional hernia Post-op diagnosis: same Post-op Findings: Fascial defects 7.5 x 10 cm average estimates Cephalad towards the epigastric area 1 inch in diameter defect that was closed by PDS sutures Procedure Done: Laparoscopic ventral incisional hernia repair with mesh placement Implants: Proceed mesh 20 x 25 CM Surgeon: Rogelio Billings 3Rd Mate: Surgical technancy Gray and certified surgical technician samson Overa Circulating nurse Krystal Anesthesia: General (GETA SOLAR INSTALLATION HELPER Will Smart) Estimated blood loss (mL): 15 IV fluids (mL): 1,200 Urine output (mL): 200 Condition: stable Disposition: same day Brief History: Symptomatic ventral incisional hernia symptomatic ventral incisional hernia Procedure: Omentum containing omental containing epigastric hernia Endoloop PDS for hemostasis Patient was brought to the operating room after appropriate preoperative identification at the holding area. heparin subcutaneous civil engineering design draftsperson to the OR were given. Patient was placed in supine position, Deluna catheter was administered by circulating nurse revealing clear urine. General endotracheal anesthesia was administered the patient was intubated without incident. both arms was tucked. All pressure points were padded and patient was appropriately secured to the bed. Time-out was done verifying the patient's name/date of /planned procedure and destination after the procedure, all were in agreement. SCDs confirmed to be functioning, preoperative antibiotics administered per protocol, and beta mary protocol was confirmed, appropriate positioning of the patient was done . Prep and drape of the abdomen was done under the usual sterile technique. The G-tube was administered by the anesthesia provider to allow deflation of the stomach. After Injection of local anesthetic An incision was made in the left upper subcostal margin along the left anterior axillary line of the abdomen , 5 mm Opti-Vu trocar was used with a 0 scope 5 mm under direct visualization safe entrance to the abdomen was achieved and all through abdominal wall layers. The abdomen was insufflated gradually and slowly up to 15 mmHg at 40 L/m , abdomen was surveyed showing no signs of injuries yet there were no evidence of intra-abdominal adhesions and multiple fascial defects were appreciated at the center of the abdomen with average measurements of 7.5 x 10 cm. Another defect was appreciated in the epigastric area about inch in diameter and contained omental fat. Followed by placement of 12 mm trocar under direct visualization about a handbreadth inferior to first trocar, followed by another 5 mm trocar inserted 1 handbreadth inferior to the 12 mm trocar. Using a laparoscopic LigaSure device omental adhesions were carefully dissected out from the epigastric hernia defect. There was some oozing from the omentum in spite of the LigaSure application so I decided to apply an Endoloop PDS and that secured the hemostasis appropriately. At this point measurement of the fascial defects 7.5 x 10 cm.At that point a Proceed mesh system 20 cm x 25cm in diameter is decided upon, having about 5 cm overlap from the fascial defect edge. Which did include covering the epigastric fascial defect. Application of PDS sutures at the 4 portions of the mesh was done after appropriate orientation ex vivo, then the mesh was rolled then introduced through the 12 mm trocar, making sure that the smooth service faces the bowel and the rough surface faces abdominal wall, fascial closure device was introduced after creating 4 skin stab incisions using 11 blade knife, matching site of exit of PDS sutures, fascial closure device was introduced to grab onto the 2 limbs of PDS sutures from each pole of the mesh and grabbed and tied down ex vivo, defect was at the center of the mesh. At this point the mesh was adjusted found to be in a good position with good overlap,no trans-fascial sutures were used at this point, an absorbable Tack fixation device, performing a double crown technique to secure the mesh in place. Hemostasis was secured, there was no evidence of bleeding, the mesh appears to be in good position and well spread without crumbling. Final survey laparoscopy was done showing no injuries or bleeding. Bilateral TAP (transversus abdominous plain peripheral nerve block )block using Exparel 20 mL Exparel 40 ml Normal saline 20 ml bupivacaine 0.25% 30 mL on each side injected 20 mL injected the port sites Closure of the 12 mm trocar site, using interrupted #1 PDS sutures under direct visualization.Trocars were then taken out under direct visualization after gas was allowed to escape., followed by subcuticular closure for all trocar sites, including the fascial closure device sites , Dermabond was applied Patient tolerated the procedure well, and an abdominal binder was then wrapped around the patient's abdomen. The patient was then extubated and taken to the recovery room in stable condition Deluna catheter was taken out at the end of the procedure without complication All count of instruments,needles and sponges were completed I Was present for the whole entire procedure
--- NOTE | 2021-01-25 10:51 | SUR.PHASEI ---
1049 PATIENT TO PACU FROM OR. RR EVEN AND UNLABORED. PWD. DRESSING, CDI.
[2021-01-25] MEDS: fentaNYL 50 mcg/mL INJ 2mL IVP ×2 (11:00→11:11)
[2021-01-25] MEDS: ondansetron 2 mg/ML SDV 2 mL 4 MG IVP (11:03)
[2021-01-25] MEDS: HYDROmorphone 1 mg/mL INJ 1 mL 0.5 MG IVP ×2 (11:19→11:30)
--- NOTE | 2021-01-25 11:43 | SUR.PHASEI ---
1141 PATIENT TO OPS AT THIS TIME. RR EVEN AND UNLABORED. ABDOMEN CDI WITH ABDOMINAL BINDER IN PLACE. PATIENT TOLERATING ICE CHIPS.
--- NOTE | 2021-01-25 11:44 | SUR.PHASEI ---
1141 ANESTHESIA AWARE OF LAST DOSE OF IV PAIN MEDICATION GIVEN PRIOR TO PT GOING TO OPS
[2021-01-25] MEDS: cyclobenzaprine 10 mg Tablet PO (12:15)
[2021-01-25] MEDS: HYDROcodone-acetaminophen 5-325 mg Tablet 1 TAB PO (12:15)
--- NOTE | 2021-01-25 18:57 | ANE.PACU2 ---
Inpatient post-anesthesia follow up: Airway intact: Yes Vital signs: Temperature 97.7 F Pulse Rate 90 Respiratory Rate 18 Blood Pressure 116/80 Pulse Oximetry 95 Oxygen Delivery Me thod Room Air Oxygen Flow Rate 6 Fraction of Inspir ed Oxygen Hydration adequate: Yes Nausea and vomiting: No Pain level: 2 Mental status: Baseline
== END 2021-01-25 14:50 | disposition home or self-care (01) ==
PROVIDERS: PCP Family Medicine; Visit Provider Surgery
PROC: 0WQF4ZZ Repair Abdominal Wall, Percutaneous Endoscopic Approach (ICD-10-PCS; CPT 49654; principal; 2021-01-25 08:00)
DX: K43.2 Incisional hernia without obstruction or gangrene (principal); I10 Essential (primary) hypertension; E66.01 Morbid (severe) obesity due to excess calories; Z68.32 Body mass index [BMI] 32.0-32.9, adult
CPT/HCPCS: 49654; 96365; 96372; C9290; J0690; J1100; J1170; J1644; J2405; J2704; J3010; J3490; J7030

== ENCOUNTER 2021-09-08 09:31 | Outpatient (CLI) | payer BC, SELFPAY ==
--- NOTE | 2021-09-08 10:13 | XR_ITS ---
WS: [id number] Chest 2 views, 09/08/2021 Clinical Data: HX OF RENAL CELL CARCINOMA/ACUTE KIDNEY INJURY Comparison: Portable chest, 04/29/2020. Findings: No nodules, masses or effusions are seen. The heart is normal. The pulmonary vascularity is not increased. No pneumonia or pneumothorax is seen. The aortic arch and descending thoracic aorta s how tortuosity. XR/XR chest 2V* [id number] Impression: Negative chest.
--- NOTE | 2021-09-08 10:13 | CT_ITS ---
WS: [id number] CT ABDOMEN AND PELVIS NONCONTRAST HISTORY: ACUTE KIDNEY FAILURE/HX OF RENAL CELL CARCINOMA TECHNIQUE: Imaging performed through the abdomen and pelvis. Coronal and sagittal reformats are submi tted. All CT scans at [facility] use at least one of these dose optimization techniques: auto mated exposure control; mA and/or kV adjustment per patient size (includes targeted exams where dose is matched to clinical indication); or iterative reconstruction. Noncontrast examination. Patient provided a history of a possible cardiac event related to IV contras t injection from an outside hospital. DLP: 1256.41 mGy.cm COMPARISON: 08/20/2020 Lower thorax: No cardiomegaly. No pulmonary mass or nodule. Small hiatal hernia. Liver: Normal size liver. No mass or bile duct dilatation. Gallbladder: Normal gallbladder. Pancreas: Normal size and attenuation. Normal pancreatic duct. No pancreatitis or mass. Spleen: Normal. Adrenal glands: Normal. No mass. Right kidney: Low-attenuation mass measures 16 x 19 mm from the lower pole. Hounsfield units are low consistent with a cyst. This was also seen on 08/20/2020 and 12/28/2019 without significant increase in size. No calcifications or obstruction. Left kidney: Partial nephrectomy mid kidney. Postsurgical changes. No change in the contour of the ki dney or mass suspected. Aorta: Normal abdominal aorta, no aneurysm or atherosclerosis. No free fluid, intraperitoneal air or significant lymphadenopathy. GI tract: Prior appendectomy. No GI tract obstruction. No free air. There are several diverticula in the sigmoid colon without acute inflammation. There is mild wall thickening of the colon in the regio n of the diverticular disease. Abdominal wall: No change in the supraumbilical hernia. Pelvis: No free fluid or adenopathy. Normally distended urinary bladder. Prostate gland contains cent ral calcification. Inguinal canals are patent bilaterally containing fat only. Osseous structures: Unremarkable. CT/CT abdomen pelvis wo con [id number] IMPRESSION: 1. Status post partial LEFT nephrectomy. Contour of the kidney is similar to p rior studies. No evidence for recurrent mass on this unenhanced study. 2. Long-term stability cyst lower pole RIGHT kidney. 3. No renal obstruction or calcifications. 4. Mild diverticulosis the sigmoid colon without acute diverticulitis. 5. Ventral abdominal wall hernias are stable.
[2021-09-08] MEDS: barium sulfate 450 mL Oral Susp PO (12:50)
== END 2021-09-08 09:32 | disposition home or self-care (01) ==
PROVIDERS: PCP Family Medicine; Visit Provider Urology
DX: Z85.528 Personal history of other malignant neoplasm of kidney (principal); N17.9 Acute kidney failure, unspecified; Z90.5 Acquired absence of kidney; N28.1 Cyst of kidney, acquired; K57.30 Diverticulosis of large intestine without perforation or abscess without bleeding; K43.9 Ventral hernia without obstruction or gangrene
CPT/HCPCS: 71046; 74176

== ENCOUNTER → 2022-02-01 09:53 | Outpatient (BNVA) | payer BC, SELFPAY | PROVIDERS: PCP Family Medicine; Visit Provider Family Medicine | DX: N17.9 Acute kidney failure, unspecified (principal); N18.31 Chronic kidney disease, stage 3a; N28.9 Disorder of kidney and ureter, unspecified; I12.9 Hypertensive chronic kidney disease with stage 1 through stage 4 chronic kidney disease, or unspecified chronic kidney disease | CPT/HCPCS: 80061; 80069; 82043; 82542; 85025 ==

== ENCOUNTER → 2022-02-02 09:20 | Outpatient (BNVA) | payer BC, SELFPAY | PROVIDERS: PCP Family Medicine; Visit Provider Family Medicine | DX: N17.9 Acute kidney failure, unspecified (principal); N18.31 Chronic kidney disease, stage 3a; N28.9 Disorder of kidney and ureter, unspecified | CPT/HCPCS: 82043 ==

== ENCOUNTER 2022-09-07 14:51 | Outpatient (CLI) | payer BC, SELFPAY ==
--- NOTE | 2022-09-07 | CT_ITS ---
WS: [id number] CT ABDOMEN PELVIS TECHNIQUE: Noncontrast CT of the abdomen and pelvis with coronal and sagittal reformatted images. CLINICAL INFORMATION: RENAL CELL CARCINOMA COMPARISON: CT 09/08/2021 and 08/20/2020 DLP: 902.[address] scans at [facility] use at least one of these dose optimization techniques: automated e xposure control; mA and/or kV adjustment per patient size (includes targeted exams where dose is matc hed to clinical indication); or iterative reconstruction. FINDINGS: Noncontrast liver is normal. Normal GE junction. Normal noncontrast spleen. Fatty atrophy of the panc reas. Adrenal glands are normal. No hydronephrosis in either kidney. Slight increase in the RIGHT low er pole cortical cyst measuring 2.1 x 2.5 CM. Stable postoperative changes LEFT partial nephrectomy. No evidence of new or progressed renal mass. Adrenal glands are normal. Normal caliber abdominal aorta. Stable ventral abdominal wall hernia. No evidence of obstruction. Pro minent prostate measuring 3.6 cm. Sigmoid diverticulosis. No evidence of acute diverticulitis. Prior appendectomy. No adenopathy in the abdomen and pelvis. No free fluid. CT/CT abdomen pelvis wo con [id number] IMPRESSION: 1. Prior postoperative changes partial LEFT nephrectomy. LEFT kidney is unchan ged in appearance. No evidence of recurrent mass. 2. Slight increase in size of the RIGHT lower pole renal cyst measuring 2.5 x 2.1 CM. 3. Adrenal glands are normal. 4. Ventral abdominal wall hernia is unchanged. 5. Sigmoid diverticulosis. No evidence of acute diverticulitis. 6. Mild prominence of the prostate measuring 3.6 cm is unchanged.
--- NOTE | 2022-09-07 15:22 | XRR_ITS ---
PROCEDURE INFORMATION: Exam: XR Chest Exam date and time: 09/07/2022 3:34 PM Age: 66 years old Clinical indication: Condition or disease; Other: HX renal cell carcinoma; Prior surgery; Surgery type: Lt kidney, appy, hernia; Additional info: HX renal cell carcinoma, acute kidney failure TECHNIQUE: Imaging protocol: Radiologic exam of the chest. Views: 2 views. COMPARISON: CR XR chest 2V* [id number] 09/08/2021 10:24 AM FINDINGS: Lungs: Minimal benign healed granulomatous disease, without significant change from prior exam. No focal infiltrate or consolidation. Pleural spaces: Unremarkable. No pleural effusion. No pneumothorax. Heart/Mediastinum: Unremarkable. No cardiomegaly. Bones/joints: No acute osseous abnormality. Other findings: No significant change with prior exam. XR/XR chest 2V* [id number] IMPRESSION: Stable appearance of the chest with prior exam, without acute cardiopulmonary abnormality.
== END 2022-09-07 14:52 | disposition home or self-care (01) ==
LOC: RAD 14:54
PROVIDERS: PCP Family Medicine; Visit Provider Urology
DX: Z85.528 Personal history of other malignant neoplasm of kidney (principal); K43.9 Ventral hernia without obstruction or gangrene; K57.30 Diverticulosis of large intestine without perforation or abscess without bleeding
CPT/HCPCS: 71046; 74176

== ENCOUNTER → 2023-02-26 08:04 | Outpatient (BNVA) | payer MEDICARE, BC, SELFPAY | PROVIDERS: PCP Family Medicine; Visit Provider Family Medicine | DX: N18.31 Chronic kidney disease, stage 3a (principal) | CPT/HCPCS: 80048; 80061; 80069; 82043; 82310; 83036; 83970; 85025 ==

== ENCOUNTER → 2024-07-07 09:49 | Outpatient (BNVA) | payer MEDICARE, OTHER, SELFPAY | PROVIDERS: PCP Clinical Nurse Specialist Adult Health; Visit Provider Clinical Nurse Specialist Adult Health | DX: I12.9 Hypertensive chronic kidney disease with stage 1 through stage 4 chronic kidney disease, or unspecified chronic kidney disease (principal); N18.31 Chronic kidney disease, stage 3a | CPT/HCPCS: 80053; 82043; 82310; 83970; 84100; 85025 ==